=== PATIENT | male | born 1935 | race Caucasian/White ===

== ENCOUNTER 2016-11-15 11:33 | Emergency (ER) | payer OTHER ==
[2016-11-15 12:00] VITALS: BP 125/75; PULSE 86; TEMP 98.2; BMI 20.4
--- NOTE | 2016-11-15 12:33 | PDOC ---
History of Present Illness - General Chief Complaint: Nasal Bleeding Stated Complaint: NOSE BLEED Time Seen by Provider: 11/15/16 11:43 History Source: Patient Exam Limitations: No Limitations Past History - Past Medical History Allergies/Adverse Reactions: Allergies Allergy/AdvReac Type Severity Reaction Status Date / Time bacitracin Allergy Intermediate swelling Verified 11/15/16 11:54 of eye Home Medications: Ambulatory Orders Atorvastatin Ca [Lipitor] 20 mg PO HS 04/03/14 Tamsulosin HCl 0.4 mg PO BID 04/03/14 Teriparatide [Forteo] 2.4 ml SQ HS 02/11/16 Anemia: No Asthma: No Cancer: No Cardiac Disorders: No CVA: No COPD: No CHF: No Dementia: No Diabetes: No GI Disorders: No Disorders: No HTN: No Hypercholesterolemia: Yes Liver Disease: No Seizures: No Thyroid Disease: No - Surgical History Abdominal Surgery: No Appendectomy: No Cardiac Surgery: No Cholecystectomy: No Lung Surgery: No Neurologic Surgery: No Orthopedic Surgery: No - Psycho/Social/Smoking Cessation Hx Anxiety: No Suicidal Ideation: No Smoking History: Never smoked Have you smoked in the past 12 months: No Hx Alcohol Use: No Drug/Substance Use Hx: No Substance Use Type: None Hx Substance Use Treatment: No *Physical Exam - Vital Signs Last Vital Signs Temp Pulse Resp BP Pulse Ox 98.2 F 86 19 125/75 97 11/15/16 11:54 11/15/16 11:54 11/15/16 11:54 11/15/16 11:54 11/15/16 11:54 - Physical Exam General Appearance: Yes: Nourished, Appropriately Dressed, Apparent Distress, Mild Distress HEENT: positive: EOMI, LASHAE, TMs Normal, Pharynx Normal, Rhinorrhea (as large clot to the anterior aspect in her right nostril, patient states his site of frequent bleeds and previous history of cauterization active bleeding noted, Left pharynx nostril clear). negative: Normal ENT Inspection Neck: positive: Tender, Supple. negative: Lymphadenopathy (R), Lymphadenopathy (L) Respiratory/Chest: positive: Chest Tender, Lungs Clear, Normal Breath Sounds Cardiovascular: positive: Regular Rate Gastrointestinal/Abdominal: positive: Soft Extremity: positive: Normal Capillary Refill, Normal Range of Motion Integumentary: positive: Normal Color, Dry, Warm, Pale Neurologic: positive: rod filler II-XII NML intact, Fully Oriented, Alert, Normal Mood/ Affect, Normal Response, Motor Strength 11/06 Medical Decision Making - Medical Decision Making 11/15/16 12:39 For his arrival to ER. Had lengthy discussion about procedure for holding nose, not dislodging clots, not using saline irrigation until clots in scabs are gone. Encouraged to use lubricating and humidifier in room, and will follow-up with Dr. Vasquez/ENT office tomorrow *DC/Admit/Observation/Transfer Diagnosis at time of Disposition: Anterior epistaxis - Discharge Dispostion Disposition: HOME Condition at time of disposition: Stable Admit: No - Referrals Referrals: Beata Funk MD [Primary Care Provider] - Drew Vasquez MD [Staff Physician] - - Patient Instructions Printed Discharge Instructions: DI for Nosebleed Additional Instructions: Hold pressure to both nostrils leaning head forward, for 15 minutes using paper towel or Kleenex. If nosebleed does not stop repeat for an additional 15 minutes If nosebleed still does not. Seek medical evaluation Once nosebleed has resolved, may use Vaseline or bacitracin ointment just in the anterior aspect of nostrils to keep airways moist Drink lots of fluids to replace any blood loss Remember that blood can cause an upset stomach and or diarrhea if swallowed Consider humidifier in room at night to avoid drying of mucous membranes Never uses any instrument/Q-tips/fingers into nostrils to avoid dislodging scabbing and recurrence of bleeding Do not blow nose, and do not put any cotton balls or Kleenex into nose to help stop bleeding If nosebleeds occur frequently have evaluation by ear nose and throat doctor for possible further treatment and cauterization Return to emergency department for inability to stop nosebleed, lightheadedness , fevers, or any other worsened symptoms
== END 2016-11-15 12:44 | disposition home or self-care (01) ==
LOC: JER 11:33 → JERFT 11:33
DX: R04.0 Epistaxis (principal); E78.00 Pure hypercholesterolemia, unspecified
CPT/HCPCS: 99281-25

== ENCOUNTER 2018-10-03 14:25 | Observation (INO) | payer OTHER, BC ==
[2018-10-03] MEDS ORDERED: SODIUM CHLORIDE 1,000 ML IV STA (14:46)
[2018-10-03 15:08] VITALS: BMI 21.6
--- NOTE | 2018-10-03 15:13 | PDOC ---
Attending Attestation - HPI HPI: 10/03/18 15:24 The patient is a 83 year old male, with a significant past medical history of HLD, chronic back pain, PVD (RLE venous stasis ulcer), who presents to the emergency department with, dizziness. As per patient, he recently experienced an episode of room-spinning dizziness which lasted approximately 15 minutes and resolved on its own then he had a repeat episode today lasting an hour prompting him to visit his PCP Dr. Page. As per Dr. Page, while in the office patient was in Afib at a rate up to the 140s, his blood pressure was 160/100 and O2 saturation 98% prompting his arrival to the ED. He denies any recent fevers or chills.. He denies any recent nausea, vomit, diarrhea or constipation. He denies any recent chest pain or shortness of breath. He denies any recent dysuria, frequency, urgency or hematuria. Allergies: Bacitracin. Primary Care Physician: Dr. Page - Physicial Exam PE: 10/03/18 16:16 GENERAL: The patient is in no acute distress. HEAD: Normal with no signs of trauma. EYES: PERRLA, EOMI, sclera anicteric, conjunctiva clear. ENT: Ears normal, nares patent, oropharynx clear without exudates. Moist mucous membranes. NECK: Normal range of motion, supple without lymphadenopathy, JVD, or masses. LUNGS: Breath sounds equal, clear to auscultation bilaterally. No wheezes, and no crackles. HEART:Regular rate and rhythm, normal S1 and S2 without murmur, rub or gallop. ABDOMEN: Soft, nontender, normoactive bowel sounds. No guarding, no rebound. No masses palpable. EXTREMITIES: +RLE: Chronic venous ulcer with drainage. NEUROLOGICAL: Cranial nerves II through XII grossly intact. Normal speech. No focal neurological deficits. MUSCULOSKELETAL: Back non-tender to palpation, no CVA tenderness SKIN: Warm, Dry, normal turgor, no rashes or lesions noted. <Brenda Shultz - Last Filed: 10/03/18 16:16> - Resident Resident Name: Alana Granda - ED Attending Attestation I have performed the following: I have examined & evaluated the patient, The case was reviewed & discussed with the resident, I agree w/resident's findings & plan, Exceptions are as noted - Medical Decision Making 83 yo M h/o PVD, chronic RLE wound who presents to the ER with a complaint of vertigo symptoms began yesterday and resolved He noted vertigo today He went to see his PMD EKG 10/03/18 16:35 Laboratory Tests 10/03/18 10/03/18 15:13 15:13 WBC 7.7 Hgb 12.5 Hct 36.8 Plt Count 269 INR 1.05 10/03/18 17:01 Laboratory Tests 10/03/18 10/03/18 15:13 15:35 INR 1.05 Sodium 137 Potassium 4.2 Chloride 105 Carbon Dioxide 25 BUN 22 H Creatinine 1.0 Random Glucose 81 Creatine Kinase 401 H Troponin I < 0.02 EKG from the office reviewed Will place on observation to tele <Marizol Nielsen - Last Filed: 10/04/18 13:20> Attestations - Attestations 10/03/18 15:25 Documentation prepared by Brenda Shultz, acting as medical insurance verifier for Marizol Nielsen MD. <Brenda Shultz - Last Filed: 10/03/18 16:16>
--- NOTE | 2018-10-03 15:25 | PDOC ---
History of Present Illness - General Chief Complaint: Blood Pressure Problem Stated Complaint: Blood Pressure Problem Time Seen by Provider: 10/03/18 14:45 History Source: Patient Exam Limitations: No Limitations - History of Present Illness Initial Comments: 10/03/18 15:19 Patient is a 83 y/o male with a history of peripheral vascular disease and chronic venous stasis ulcer who presents for dizziness. Patient had an episodes of dizziness yesterday which he describes as the room spinning that lasted for 15 minutes. It got better but he felt the same type of dizziness today and it lasted for longer. He went to his PCP Dr. oMrales who did an EKG and found it to be "out of wack" so he was sent to the ED. Patient does not smoke and has a couple of glasses of wine with dinner throughout the week. Patient has no other complaints. Patient denies nausea, vomiting, shortness of breath, chest pain, or headache. Past History - Past Medical History Allergies/Adverse Reactions: Allergies Allergy/AdvReac Type Severity Reaction Status Date / Time bacitracin Allergy Intermediate swelling Verified 10/03/18 14:39 of eye Home Medications: Ambulatory Orders Atorvastatin Ca [Lipitor] 20 mg PO HS 04/03/14 Tamsulosin HCl 0.4 mg PO BID 04/03/14 Prednisolone 1% Ophthalmic [Pred Forte 1% -] 1 ml OS ASDIR 10/03/18 Anemia: No Asthma: No Cancer: No Cardiac Disorders: No CVA: No COPD: No CHF: No Dementia: No Diabetes: No GI Disorders: No Disorders: No HTN: No Hypercholesterolemia: Yes Liver Disease: No Seizures: No Thyroid Disease: No - Surgical History Abdominal Surgery: No Appendectomy: No Cardiac Surgery: No Cholecystectomy: No Lung Surgery: No Neurologic Surgery: No Orthopedic Surgery: No - Suicide/Smoking/Psychosocial Hx Smoking History: Never smoked Have you smoked in the past 12 months: No Hx Alcohol Use: No Drug/Substance Use Hx: No Substance Use Type: None Hx Substance Use Treatment: No Review of Systems - Review of Systems Constitutional: No: Chills, Fever HEENTM: No: Eye Pain Respiratory: No: Cough, Shortness of Breath Cardiac (ROS): No: Chest Pain ABD/GI: No: Abdominal Distended, Diarrhea, Nausea : No: Dysuria Musculoskeletal: No: Back Pain Neurological: Yes: Dizziness *Physical Exam - Vital Signs Last Vital Signs Temp Pulse Resp BP Pulse Ox 98.1 F 100 H 17 139/99 99 10/03/18 14:59 10/03/18 14:59 10/03/18 14:59 10/03/18 14:59 10/03/18 14:59 - Physical Exam Comments: 10/03/18 15:24 GENERAL: A&O x3, no acute distress EYES: EOMI HEARTL RRR, 3/5 systolic murmur at upper sternal border, rubs or gallops LUNGS: CTAL B/L ABDOMEN: soft, non distended, non tender EXTREMITIES: no pitting edema, r foot with chronic ulcer, covered by guaze SKIN: no rashes or ulcers ED Treatment Course - LABORATORY CBC & Chemistry Diagram: 10/03/18 15:13 10/03/18 15:35 Medical Decision Making - Medical Decision Making 10/03/18 15:25 EKG: no st elevations, p wave present, QTC 440 f/u labs 10/03/18 17:40 labs WNL, will admit to tele obs under hospitalist team *DC/Admit/Observation/Transfer Diagnosis at time of Disposition: Irregular heart rhythm - Discharge Dispostion Decision to Admit order: Yes - Referrals Referrals: Patel Page MD [Primary Care Provider] - - Patient Instructions - Post Discharge Activity
[2018-10-03 16:14] LABS: BASO % 0.6 % (0-2.0); EOS % 0.9 % (0-4.5); HEMATOCRIT 36.8 % (35.4-49); HEMOGLOBIN 12.5 GM/dL (11.7-16.9); LYMPH % 15.6 % (8-40); MCH 34.1 pg (25.7-33.7); MEAN CELL VOLUME 100.2 fl (80-96); MEAN PLT VOLUME 7.7 fl (7.5-11.1); MONO % 8.5 % (3.8-10.2); NEUT % 74.4 % (42.8-82.8); PLATELET COUNT 269 K/MM3 (134-434); RBC 3.68 M/mm3 (4.00-5.60); RDW 13.2 % (11.9-15.9); WHITE BLOOD COUNT 7.7 K/mm3 (4.0-10.0)
[2018-10-03 16:26] LABS: INR 1.05 (0.83-1.09); PROTHROMBIN TIME (PATIENT) 12.4 SEC (9.7-13.0)
[2018-10-03 16:30] LABS: ACTIVATED PTT 33.3 SECONDS (25.2-36.5)
[2018-10-03 16:43] LABS: ALBUMIN 3.4 g/dl (3.4-5.0); ALK PHOS 67 U/L (45-117); ANION GAP 7 MMOL/L (8-16); BILIRUBIN,TOTAL 0.4 mg/dL (0.2-1); BLOOD UREA NITROGEN 22 mg/dL (7-18); CALCIUM 8.5 mg/dL (8.5-10.1); CHLORIDE 105 mmol/L (98-107); CO2 25 mmol/L (21-32); GLUCOSE,RANDOM 81 mg/dL (74-106); POTASSIUM 4.2 mmol/L (3.5-5.1); SGOT/AST 27 U/L (15-37); SGPT/ALT 36 U/L (13-61); SODIUM 137 mmol/L (136-145)
[2018-10-03 17:05] LABS: MAGNESIUM 2.2 mg/dL (1.8-2.4)
--- NOTE | 2018-10-03 18:11 | HP ---
CHIEF COMPLAINT: dizziness PCP: Camilo HISTORY OF PRESENT ILLNESS: Patient is an 83 y/o M w/ PMHx PVD, chronic venous stasis ulcer, afib/RVR noted on EKG in 2016 not on AC, p/w 2 episodes of self-resolving dizziness since yesterday. Went to PCP's office and reportedly tachyarrhythmia Afib vs SVT was seen on EKG; Pt was then sent to ED. No other symptoms or complaints, totally asymptomatic at time of presentation, in particular has not had CP, SOB, palpitation, LOC, falls, or any recurrent dizziness. Labs and EKG in the ED were unremarkable, initial troponin negative. Dr. Villareal was contacted by ED attending and requested observation on telemetry. ER course was notable for: (1) EKG sinus rhythm w/ short IN, no ST changes (2) troponin negative x 1 (3) asymptomatic Recent Travel: PAST MEDICAL HISTORY: As per HPI PAST SURGICAL HISTORY: Multiple vascular procedures for chronic venous stasis ulcer Social History: Smoking: Alcohol: Drugs: Family History: Allergies bacitracin Allergy (Intermediate, Verified 10/03/18 14:39) swelling of eye PT STATES THAT IT WAS AN EYE DROP THAT HE TOOK YEARS AGO. PT STATES THAT HE TOLERATES BACITRACIN OINTMENT HOME MEDICATIONS: Home Medications Medication Instructions Recorded Atorvastatin Ca [Lipitor] 20 mg PO HS 04/03/14 Tamsulosin HCl 0.4 mg PO BID 04/03/14 Prednisolone 1% Ophthalmic [Pred 1 ml OS ASDIR 10/03/18 Forte 1% -] REVIEW OF SYSTEMS As per HPI PHYSICAL EXAMINATION Vital Signs - 24 hr 10/03/18 14:59 Temperature 98.1 F Pulse Rate 100 H Respiratory 17 Rate Blood Pressure 139/99 O2 Sat by Pulse 99 Oximetry (%) GENERAL: A&Ox3, NAD HEENT: NC/AT, PERRLA, EOMI, MMM NECK: Trachea midline, full range of motion, supple. LUNGS: CTA b/l HEART: RRR, holosystolic murmur most prominent at LUSB ABDOMEN: +bs, soft, NT, ND EXTREMITIES: 2+ pulses, warm, well-perfused, no edema. 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 SKIN: Warm, dry, normal turgor, no rashes or lesions noted Laboratory Results - last 24 hr 10/03/18 10/03/18 10/03/18 15:13 15:13 15:13 WBC 7.7 RBC 3.68 L Hgb 12.5 Hct 36.8 MCV 100.2 H MCH 34.1 H MCHC 34.0 RDW 13.2 Plt Count 269 MPV 7.7 Absolute Neuts (auto) 5.8 Neutrophils % 74.4 D Lymphocytes % 15.6 D Monocytes % 8.5 Eosinophils % 0.9 D Basophils % 0.6 Nucleated RBC % 0 PT with INR 12.40 INR 1.05 PTT (Actin FS) 33.3 Sodium Potassium Chloride Carbon Dioxide Anion Gap BUN Creatinine Creat Clearance w eGFR Random Glucose Calcium Magnesium Cancelled Total Bilirubin AST ALT Alkaline Phosphatase Creatine Kinase Creatine Kinase Index CK-MB (CK-2) Troponin I Total Protein Albumin TSH 10/03/18 15:35 WBC RBC Hgb Hct MCV MCH MCHC RDW Plt Count MPV Absolute Neuts (auto) Neutrophils % Lymphocytes % Monocytes % Eosinophils % Basophils % Nucleated RBC % PT with INR INR PTT (Actin FS) Sodium 137 Potassium 4.2 Chloride 105 Carbon Dioxide 25 Anion Gap 7 L BUN 22 H Creatinine 1.0 Creat Clearance w eGFR 71.72 Random Glucose 81 Calcium 8.5 Magnesium 2.2 Total Bilirubin 0.4 AST 27 ALT 36 Alkaline Phosphatase 67 Creatine Kinase 401 H Creatine Kinase Index 1.7 CK-MB (CK-2) 7.1 H Troponin I < 0.02 Total Protein 7.0 Albumin 3.4 TSH 1.00 ASSESSMENT/PLAN: 83 y/o M w/ PMHx PVD, chronic venous stasis ulcer, afib/RVR noted on EKG in 2016 not on AC, p/w two episodes self-resolving dizziness and unspecified tachyarrhythmia seen in PCP's office. #?paroxysmal afib -murmur on PE -telemetry monitoring -echocardiogram -trend troponins -BMP, CBC, Mg, Phos, TSH -cardiology consulted #FEN -no IVF -monitor lytes -cardiac diet #PPx -DVT: heparin subq -GI: not indicated #code -full #dispo -observe on telemetry Visit type - Emergency Visit Emergency Visit: Yes Care time: The patient presented to the Emergency Department on the above date and was hospitalized for further evaluation of their emergent condition. - New Patient This patient is new to me today: Yes Date on this admission: 10/03/18 - Critical Care Critical Care patient: No
--- NOTE | 2018-10-03 21:20 | PN ---
Teaching Attending Note Name of Resident: Daniel Slaughter ATTENDING PHYSICIAN STATEMENT I saw and evaluated the patient. I reviewed the resident's note and discussed the case with the resident. I agree with the resident's findings and plan as documented. SUBJECTIVE: Feels well now - no complaints. Dizziness resolved. OBJECTIVE: Afebrile, Hemodynamically Stable. Last Vital Signs Temp Pulse Resp BP Pulse Ox 98.1 F 100 H 17 139/99 97 10/03/18 14:59 10/03/18 14:59 10/03/18 14:59 10/03/18 14:59 10/03/18 19:04 HEENT: Atraumatic, Normocephalic Heart - S1, S2, SM Lungs - clear to auscultation Abdomen - Soft, non-tender. Bowel Sounds normal. Extremities - no edema. RLE wrapped with EDUARDO. Neurovascularly intact. Neuro - AAO x 3. LASHAE. EOMI - no nystagmus, Tone/Power normal all 4 extremities. Laboratory Results - last 24 hr 10/03/18 10/03/18 10/03/18 15:13 15:13 15:13 WBC 7.7 RBC 3.68 L Hgb 12.5 Hct 36.8 MCV 100.2 H MCH 34.1 H MCHC 34.0 RDW 13.2 Plt Count 269 MPV 7.7 Absolute Neuts (auto) 5.8 Neutrophils % 74.4 D Lymphocytes % 15.6 D Monocytes % 8.5 Eosinophils % 0.9 D Basophils % 0.6 Nucleated RBC % 0 PT with INR 12.40 INR 1.05 PTT (Actin FS) 33.3 Sodium Potassium Chloride Carbon Dioxide Anion Gap BUN Creatinine Creat Clearance w eGFR Random Glucose Calcium Magnesium Cancelled Total Bilirubin AST ALT Alkaline Phosphatase Creatine Kinase Creatine Kinase Index CK-MB (CK-2) Troponin I Total Protein Albumin TSH 10/03/18 15:35 WBC RBC Hgb Hct MCV MCH MCHC RDW Plt Count MPV Absolute Neuts (auto) Neutrophils % Lymphocytes % Monocytes % Eosinophils % Basophils % Nucleated RBC % PT with INR INR PTT (Actin FS) Sodium 137 Potassium 4.2 Chloride 105 Carbon Dioxide 25 Anion Gap 7 L BUN 22 H Creatinine 1.0 Creat Clearance w eGFR 71.72 Random Glucose 81 Calcium 8.5 Magnesium 2.2 Total Bilirubin 0.4 AST 27 ALT 36 Alkaline Phosphatase 67 Creatine Kinase 401 H Creatine Kinase Index 1.7 CK-MB (CK-2) 7.1 H Troponin I < 0.02 Total Protein 7.0 Albumin 3.4 TSH 1.00 Current Medications Generic Name Dose Route Start Last Admin Trade Name Thao PRN Reason Stop Dose Admin Atorvastatin Calcium 20 mg 10/03/18 22:00 Lipitor - PO HS [facility] Heparin Sodium (Porcine) 5,000 unit 10/03/18 22:00 Heparin - SQ TID [facility] Sodium Chloride 1,000 mls @ 100 mls/hr 10/03/18 14:46 10/03/18 15:57 Normal Saline - IV 10/04/18 00:45 100 mls/hr ASDIR STA Administration Tamsulosin HCl 0.4 mg 10/03/18 22:00 Flomax - PO BID [facility] Home Medications Medication Instructions Recorded Atorvastatin Ca [Lipitor] 20 mg PO HS 04/03/14 Tamsulosin HCl 0.4 mg PO BID 04/03/14 Prednisolone 1% Ophthalmic [Pred 1 ml OS ASDIR 10/03/18 Forte 1% -] ASSESSMENT AND PLAN: 83 year old male with PMHx of BPH, HLD, PVD with chronic venous stasis ulcer RLE , Hx of Paroxysmal Atrial Fibrillation not on AC, presents with 2 episodes of dizziness, both self limiting - reports that the "room was spinning" causing unsteady gait. No chest pain/palpitations/SOB/diaphoresis/Nausea/Vomiting. No falls or Head injury. No headache/visual disturbance/limb numbness or weakness. Went to PCP who reports tachyarrhythmia on office ECG. Currently asymptomatic. 1. Dizziness with associated unsteady gait, now resolved. Possible Arrhythmia versus BPPV r/o episodes of Afib with RVR Teleobservation Troponin neg, will trend ECG - NSR Echo pending Cardiology consulted Orthostatics requested. TSH level PT eval 2. BPH - continue Tamsulosin 3. HLD - Continue Lipitor. DVT Px - Heparin SQ
[2018-10-03] MEDS ORDERED: ATORVASTATIN CA 20 MG TABLET (FP) PO SCH (22:00)
[2018-10-03] MEDS ORDERED: IBUPROFEN 600 MG TABLET (FP) PO ONE ×2 (22:00→23:59)
[2018-10-04] MEDS: HEPARIN NA (PORCINE) 5,000 UNITS/ML 1ML VIAL SQ SCH ×2 (00:15→07:00)
[2018-10-04] MEDS: TAMSULOSIN HCL 0.4 MG CAP PO SCH ×2 (00:15→12:05)
[2018-10-04 06:26] LABS: BASO % 0.9 % (0-2.0); EOS % 3.3 % (0-4.5); HEMATOCRIT 34.2 % (35.4-49); HEMOGLOBIN 11.4 GM/dL (11.7-16.9); LYMPH % 27.8 % (8-40); MCH 32.9 pg (25.7-33.7); MCHC 33.3 g/dl (32.0-35.9); MEAN CELL VOLUME 98.7 fl (80-96); MEAN PLT VOLUME 7.7 fl (7.5-11.1); MONO % 10.2 % (3.8-10.2); NEUT % 57.8 % (42.8-82.8); PLATELET COUNT 246 K/MM3 (134-434); RBC 3.47 M/mm3 (4.00-5.60); RDW 13.1 % (11.9-15.9)
[2018-10-04] MEDS ORDERED: HEPARIN NA (PORCINE) 5,000 UNITS/ML 1ML VIAL ONE (06:30)
[2018-10-04 07:09] LABS: ANION GAP 6 MMOL/L (8-16); BLOOD UREA NITROGEN 27 mg/dL (7-18); CALCIUM 8.2 mg/dL (8.5-10.1); CHLORIDE 110 mmol/L (98-107); CO2 23 mmol/L (21-32); CREATININE 1.2 mg/dL (0.55-1.3); GLUCOSE,RANDOM 89 mg/dL (74-106); MAGNESIUM 2.1 mg/dL (1.8-2.4); PHOSPHOROUS 4.1 mg/dL (2.5-4.9); POTASSIUM 4.4 mmol/L (3.5-5.1); SODIUM 139 mmol/L (136-145)
--- NOTE | 2018-10-04 09:09 | CON.CARD ---
Consult Consult Specialty:: Cardiology Referred by:: Medicine Reason for Consultation:: dizziness - History of Present Illness Chief Complaint: dizziness History of Present Illness: 83M h/o PVD, chronic venous stasis ulcer p/w two episodes of dizziness day prior to admission. Patient describes room spinning sensation, two episodes lasting a few min each that resolved, felt unsteady like he was going to fall after. Went to PCP, tachycardia was noted on EKG and sent to ER. He was asymptomatic at the time, no chest pain, palps, dizziness, currently feels well. - Past Medical History Cardio/Vascular: Yes: Hyperlipdemia Gastrointestinal: Yes: Constipation Renal/: Yes: BPH Musculoskeletal: Yes: Osteoarthritis Endocrine: No: Olivier's Disease, Tobin's Disease, Diabetes Insipidus, Diabetes Mellitus, Hyperparathyroidism, Hyperthyroidism, Hypothyroidism, Osteopenia, SIADH, Other - Alcohol/Substance Use Hx Alcohol Use: No - Smoking History Smoking history: Never smoked Have you smoked in the past 12 months: No Home Medications - Allergies Allergies/Adverse Reactions: Allergies Allergy/AdvReac Type Severity Reaction Status Date / Time bacitracin Allergy Intermediate swelling Verified 10/03/18 14:39 of eye - Home Medications Home Medications: Ambulatory Orders Atorvastatin Ca [Lipitor] 20 mg PO HS 04/03/14 Tamsulosin HCl 0.4 mg PO BID 04/03/14 Family Disease History - Family Disease History Family History: Unremarkable Review of Systems - Review of Systems Constitutional: reports: No Symptoms Eyes: reports: No Symptoms HENT: reports: No Symptoms Neck: reports: No Symptoms Cardiovascular: reports: No Symptoms Respiratory: reports: No Symptoms Gastrointestinal: reports: No Symptoms Genitourinary: reports: No Symptoms Musculoskeletal: reports: No Symptoms Integumentary: reports: No Symptoms Neurological: reports: No Symptoms Endocrine: reports: No Symptoms Hematology/Lymphatic: reports: No Symptoms Psychiatric: reports: No Symptoms Vital Signs: Vital Signs Temperature 98.5 F 10/04/18 06:25 Pulse Rate 91 H 10/04/18 06:25 Respiratory Rate 17 10/03/18 14:59 Blood Pressure 151/97 10/04/18 06:25 O2 Sat by Pulse Oximetry (%) 98 10/04/18 06:25 Constitutional: Yes: No Distress, Calm Eyes: Yes: Conjunctiva Clear, EOM Intact HENT: Yes: Atraumatic, Normocephalic Neck: Yes: Supple, Trachea Midline Respiratory: Yes: Regular, CTA Bilaterally Gastrointestinal: Yes: Normal Bowel Sounds, Soft Cardiovascular: Yes: Regular Rate and Rhythm, Tachycardia JVD: No Carotid Bruit: No PMI: Non-Displaced Heart Sounds: Yes: S1, S2 Musculoskeletal: No: Back Pain Extremities: No: Cold Edema: No Peripheral Pulses WNL: Yes Integumentary: No: Jaundice Neurological: Yes: Alert, Oriented Psychiatric: No: Agitated - Other Data Labs, Other Data: CBC, BMP 10/04/18 05:30 10/04/18 05:30 INR, PTT INR 1.05 (0.83-1.09) 10/03/18 15:13 Troponin, BNP 10/03/18 10/03/18 10/04/18 15:35 21:50 05:30 Troponin I < 0.02 < 0.02 < 0.02 Troponin, BNP 10/03/18 10/03/18 10/04/18 15:35 21:50 05:30 Troponin I < 0.02 < 0.02 < 0.02 Assessment/Plan EKG: sinus tachycardia tele: sinus tachy, PACs Dizziness, unsteady gait - history consistent with vertigo - PT eval - trop neg x 3, TSH nl - orthostatics pending - monitoring on tele - echo pending Abnormal EKG, tachycardia - EKGs and reviewed, sinus tachycardia with PACs - reviewed EKGs from 02/2016 with EP - sinus tachycardia with PACs - no indication for anticoagulation - if echo benign findings, no further inpatient cardiac workup - on tele HLD - cont lipitor
--- NOTE | 2018-10-04 11:23 | ECHO ---
Name: BIA COLES Exam:Adult Echocardiogram Study Date: 10/04/2018 08:48 AM Age: 83 yrs Reason For Study: EF Height: 71 in Weight: 155 lb BSA: 1.9 m2 MMode/2D Measurements & Calculations IVSd: 1.2 cm Ao root diam: 3.5 cm LVIDd: 4.0 cm LA dimension: 3.5 cm LVIDs: 2.9 cm LVPWd: 1.0 cm EDV(Teich): 68.3 ml LVOT diam: 2.0 cm ESV(Teich): 31.2 ml LAV (MOD-bp): 92.0 ml Doppler Measurements & Calculations MV E max john: 150.0 cm/sec Ao V2 max: 284.0 cm/sec MV A max john: 183.0 cm/sec Ao max P.3 mmHg MV E/A: 0.82 Ao V2 mean: 225.6 cm/sec MV dec time: 0.07 sec Ao mean P.0 mmHg Ao V2 VTI: 64.7 cm CARINA(I,D): 0.84 cm2 AI P1/2t: 216.1 msec CARINA(V,D): 0.97 cm2 AI max john: 400.1 cm/sec LV V1 max P.9 mmHg AI max P.0 mmHg LV V1 mean P.5 mmHg AI dec slope: 542.3 cm/sec2 LV V1 max: 84.7 cm/sec LV V1 mean: 57.3 cm/sec LV V1 VTI: 16.8 cm MR max john: 491.9 cm/sec SV(LVOT): 54.6 ml MR max P.0 mmHg TR max john: 247.0 cm/sec PA V2 max: 126.2 cm/sec TR max P.5 mmHg PA max P.4 mmHg Med Peak E' John: 11.0 cm/sec Med E/e': 13.7 Lat Peak E' John: 9.5 cm/sec Lat E/e': 15.8 Procedure A two-dimensional transthoracic echocardiogram with color flow and Doppler was performed. Left Ventricle Left ventricular systolic function is normal. Ejection Fraction = 55%. E/A reversal consistent with b ut not diagnostic of poor LV compliance. Right Ventricle The right ventricle is normal size. The right ventricular systolic function is normal. Atria The left atrial size is normal. Right atrial size is normal. Mitral Valve There is mild mitral valve thickening. There is mild mitral annular calcification. There is mild mitr al regurgitation. Tricuspid Valve The tricuspid valve is normal. There is mild tricuspid regurgitation. Right ventricular systolic pres sure is normal. Aortic Valve There is moderate to severe aortic sclerosis.;. Moderate to severe valvular aortic stenosis. Aortic m luis manuel pressure gradient= 22mmHg. The calculated aortic valve area using the continuity equation is 0.96 cm2 . Mild aortic regurgitation. Pulmonic Valve The pulmonic valve is not well visualized. Trace pulmonic valvular regurgitation. Great Vessels The aortic root is normal size. Pericardium/Pleura There is no pericardial effusion. Interpretation Summary Left ventricular systolic function is normal. E/A reversal consistent with but not diagnostic of poor LV compliance The right ventricular systolic function is normal. There is mild mitral annular calcification. There is mild mitral valve thickening. There is mild mitral regurgitation. There is mild tricuspid regurgitation. There is moderate to severe aortic sclerosis.; Moderate to severe valvular aortic stenosis. Aortic mean pressure gradient= 22mmHg The calculated aortic valve area using the continuity equation is 0.96 cm2. Mild aortic regurgitation. Trace pulmonic valvular regurgitation. There is no pericardial effusion. MD Hardik Hoskins 10/04/2018 11:22 AM
[2018-10-04] MEDS ORDERED: TAMSULOSIN HCL 0.4 MG CAP ONE (11:57)
[2018-10-04] MEDS ORDERED: IBUPROFEN 600 MG TABLET (FP) PO ONE (12:15)
[2018-10-04] MEDS ORDERED: metoPROLOL SUCCINATE 25 MG TAB.SR.24H (FP) PO SCH (13:00)
[2018-10-04] MEDS ORDERED: APIXABAN 5 MG TABLET PO SCH (13:00)
--- NOTE | 2018-10-04 13:02 | PN ---
Teaching Attending Note Name of Resident: Daniel Slaughter ATTENDING PHYSICIAN STATEMENT I saw and evaluated the patient. I reviewed the resident's note and discussed the case with the resident. I agree with the resident's findings and plan as documented. SUBJECTIVE:asymptomatic. denies CP, SOB, fevdr, chills, N/V/C/D, no repeat episodes of dizzyness OBJECTIVE: Last Vital Signs Temp Pulse Resp BP Pulse Ox 98.5 F 91 H 17 151/97 98 10/04/18 06:25 10/04/18 06:25 10/03/18 14:59 10/04/18 06:25 10/04/18 06:25 General NAD CV S1 S2 RRR no murmur/rub/gallop Lungs CTA B/L no wheezing/rales/rhonchi Abdomen soft NT/ND ASSESSMENT AND PLAN: 83yo M with PMH BPH, dyslipidemia, Afib not on anticoagulation sent in for 2 episodes of dizzyness after going to his PMD office and finding to be tachycardic on EKG 1. Dizzyness- EKG reviewed by cardio and appears he was in aflutter at 150bpm and currently in NSR. will start on metoprolol 25mg and eliquis. will need to f/ u with cardio as outpatient 2. - newly seen here on echo. will need to repeat echo in 3-6mo as outpatient. results reviewed with patient and stressed importance of following up 3. can d/c home with cardiac follow up
--- NOTE | 2018-10-04 13:21 | DS ---
Physical Exam: SUBJECTIVE: Patient seen and examined at bedside in the ED. No acute complaints , feeling well. OBJECTIVE: Vital Signs Period Temp Pulse Resp BP Sys/Miller Pulse Ox Last 24 Hr 98.1 F-98.5 F 91-100 17 139-151/97-99 97-99 PHYSICAL EXAM GENERAL: A&Ox3, NAD HEENT: NC/AT, PERRLA, EOMI, MMM NECK: Trachea midline, full range of motion, supple. LUNGS: CTA b/l HEART: RRR, holosystolic murmur most prominent at LUSB ABDOMEN: +bs, soft, NT, ND EXTREMITIES: 2+ pulses, warm, well-perfused, no edema. NEUROLOGICAL: director biologics, motor, sensory systems w/o focal deficit PSYCH: Normal mood, normal affect. SKIN: Warm, dry, normal turgor, no rashes or lesions noted LABS Laboratory Results - last 24 hr 10/03/18 10/03/18 10/03/18 15:13 15:13 15:13 WBC 7.7 RBC 3.68 L Hgb 12.5 Hct 36.8 MCV 100.2 H MCH 34.1 H MCHC 34.0 RDW 13.2 Plt Count 269 MPV 7.7 Absolute Neuts (auto) 5.8 Neutrophils % 74.4 D Lymphocytes % 15.6 D Monocytes % 8.5 Eosinophils % 0.9 D Basophils % 0.6 Nucleated RBC % 0 PT with INR 12.40 INR 1.05 PTT (Actin FS) 33.3 Sodium Potassium Chloride Carbon Dioxide Anion Gap BUN Creatinine Creat Clearance w eGFR Random Glucose Calcium Phosphorus Magnesium Cancelled Total Bilirubin AST ALT Alkaline Phosphatase Creatine Kinase Creatine Kinase Index CK-MB (CK-2) Troponin I Total Protein Albumin TSH 10/03/18 10/03/18 10/04/18 15:35 21:50 05:30 WBC 6.0 RBC 3.47 L Hgb 11.4 L Hct 34.2 L MCV 98.7 H MCH 32.9 MCHC 33.3 RDW 13.1 Plt Count 246 MPV 7.7 Absolute Neuts (auto) 3.5 Neutrophils % 57.8 D Lymphocytes % 27.8 D Monocytes % 10.2 Eosinophils % 3.3 D Basophils % 0.9 Nucleated RBC % 0 PT with INR INR PTT (Actin FS) Sodium 137 Potassium 4.2 Chloride 105 Carbon Dioxide 25 Anion Gap 7 L BUN 22 H Creatinine 1.0 Creat Clearance w eGFR 71.72 Random Glucose 81 Calcium 8.5 Phosphorus Magnesium 2.2 Total Bilirubin 0.4 AST 27 ALT 36 Alkaline Phosphatase 67 Creatine Kinase 401 H Creatine Kinase Index 1.7 CK-MB (CK-2) 7.1 H Troponin I < 0.02 < 0.02 Total Protein 7.0 Albumin 3.4 TSH 1.00 10/04/18 10/04/18 05:30 05:30 WBC RBC Hgb Hct MCV MCH MCHC RDW Plt Count MPV Absolute Neuts (auto) Neutrophils % Lymphocytes % Monocytes % Eosinophils % Basophils % Nucleated RBC % PT with INR INR PTT (Actin FS) Sodium 139 Potassium 4.4 Chloride 110 H Carbon Dioxide 23 Anion Gap 6 L BUN 27 H Creatinine 1.2 Creat Clearance w eGFR 58.11 Random Glucose 89 Calcium 8.2 L Phosphorus 4.1 Magnesium 2.1 Total Bilirubin AST ALT Alkaline Phosphatase Creatine Kinase Creatine Kinase Index CK-MB (CK-2) Troponin I < 0.02 Total Protein Albumin TSH 1.36 D HOSPITAL COURSE: Date of Admission:10/03/18 Patient is an 83 y/o M w/ PMHx PVD, chronic venous stasis ulcer, tachyarrhythmias noted on EKG in 2016 not on AC, p/w two episodes self- resolving dizziness and unspecified tachyarrhythmia seen in PCP's office. Serial troponins were negative. EKG in the ED was unremarkable. Echocardiogram was significant for moderate to severe aortic stenosis and sclerosis. Cardiology was consulted and reviewed all prior available EKGs and determined the patient had experienced atrial flutter. He was initiated on Eliquis and Toprol and referred for followup evaluation with cardiology. Date of Discharge: 10/04/18 Minutes to complete discharge: 40 Discharge Summary Reason For Visit: IRREGULAR HEART RHYTHM Current Active Problems Irregular heart rhythm (Acute) Condition: Stable - Instructions Diet, Activity, Other Instructions: You were hospitalized due to an abnormal EKG and symptoms of dizziness. Cardiology was consulted, evaluated you, and reviewed your EKG history, and found that you have had a sporadic abnormal rhythm which requires medical therapy to prevent serious complications such as stroke. You also had an echocardiogram performed which revealed abnormalities in your aortic valve requiring further evaluation and management. Two new prescriptions have been sent to your pharmacy: Eliquis, a blood thinner, to be taken twice daily; and Toprol, a medication to normalize your heart rate, to be taken once daily. You received your initial doses of these medications in the hospital and will need to continue them upon your discharge. You will also need careful outpatient evaluation by cardiology. A referral has been made on your behalf. Please keep this appointment as soon as possible within a week of discharge. Please also keep an appointment with your primary medical doctor within a week of your discharge. If you experience any new or worsening chest pain, palpitation, shortness of breath, lightheadedness or loss of consciousness, new weakness or change in sensation, or any other new or concerning symptoms, please return to the Emergency Department. Referrals: Patel Page MD [Primary Care Provider] - Elissa Christy MD [Staff Physician] - Disposition: HOME - Home Medications Comprehensive Discharge Medication List: Ambulatory Orders Atorvastatin Ca [Lipitor] 20 mg PO HS 04/03/14 Tamsulosin HCl 0.4 mg PO BID 04/03/14 Apixaban [Eliquis] 5 mg PO BID #60 tablet 10/04/18 Metoprolol Succinate [Toprol XL -] 25 mg PO DAILY #30 tab.sr.24h 10/04/18 This patient is new to me today: No Emergency Visit: Yes ED Registration Date: 10/03/18 Care time: The patient presented to the Emergency Department on the above date and was hospitalized for further evaluation of their emergent condition. Critical Care patient: No - Discharge Referral Referred to [facility] Yes Physician Referral: Patel Wright MD ([facility])
[2018-10-04 14:04] VITALS: BP 135/89; PULSE 115; TEMP 98
--- NOTE | 2018-10-04 14:43 | EKG ---
Test Reason : Blood Pressure : / mmHG Vent. Rate : 091 BPM Atrial Rate : 091 BPM P-R Int : 102 ms QRS Dur : 080 ms QT Int : 358 ms P-R-T Axes : 000 025 035 degrees QTc Int : 440 ms SINUS RHYTHM WITH SHORT TN OTHERWISE NORMAL ECG WHEN COMPARED WITH ECG OF 10-FEB-2016 21:53, TN INTERVAL HAS DECREASED Confirmed by Abad Kendrick ([id number]) on 10/04/2018 2:42:54 PM Referred By: Confirmed By:Abad Kendrick
== END 2018-10-04 14:04 | disposition home or self-care (01) ==
LOC: JER 14:25 → JERBED 17:41
PROVIDERS: ATTEND Internal Medicine
PROC: 3E0337Z Introduction of Electrolytic and Water Balance Substance into Peripheral Vein, Percutaneous Approach (ICD-10-PCS; principal; 2018-10-03)
PROC: 3E013GC Introduction of Other Therapeutic Substance into Subcutaneous Tissue, Percutaneous Approach (ICD-10-PCS; 2018-10-03)
DX: I49.9 Cardiac arrhythmia, unspecified (principal); R00.0 Tachycardia, unspecified; I49.1 Atrial premature depolarization; R42 Dizziness and giddiness; R26.81 Unsteadiness on feet; E78.5 Hyperlipidemia, unspecified; M54.5 Low back pain; G89.29 Other chronic pain; I73.9 Peripheral vascular disease, unspecified; I87.2 Venous insufficiency (chronic) (peripheral); N40.0 Benign prostatic hyperplasia without lower urinary tract symptoms; Z88.8 Allergy status to other drugs, medicaments and biological substances
CPT/HCPCS: 36415; 80048; 80053; 82550; 82553; 83735; 84100; 84443; 84484; 85025; 85610; 85730; 93005; 93010; 93306-TC; 96360; 96372; 97116-GP; 97161-GP; 99285-25; G0378; J1644; J7030

== ENCOUNTER 2019-06-25 20:08 | Inpatient (IN) | payer OTHER, BC ==
--- NOTE | 2019-06-25 21:40 | PDOC ---
Documentation entered by Susana Fernandez SCRIBE, acting as scribe for Dacia Thomas MD. Dacia Thomas MD: This documentation has been prepared by the Jim lopez Aiswarya, SCRIBE, under my direction and personally reviewed by me in its entirety. I confirm that the documentation accurately reflects all work, treatment, procedures, and medical decision making performed by me. History of Present Illness - General Chief Complaint: Edema Stated Complaint: BLE SWELLING Time Seen by Provider: 06/25/19 20:18 History Source: Patient Exam Limitations: No Limitations - History of Present Illness Initial Comments: 06/25/19 21:32 The patient is a 83 year old male, with a significant PMH of irregular rhythm, HLD, and venous ulcer, who presents to the emergency department with bilateral swelling of the legs that began 1 week ago. Patient states he has a venous ulcer on his left leg and today patients nurse came in for a dressing change where she noted progressive swelling to both legs. Patient states he is scheduled for an ECHO with his design architect, Dr. Christy, tomorrow. The patient denies chest pain, shortness of breath, headache and dizziness. Denies fever, chills, nausea, vomit, diarrhea and constipation.Denies dysuria, frequency, urgency and hematuria. Allergies: bacitracin Past surgical history:None reported Social history: None reported PCP:Dr. Ferguson Past History - Past Medical History Allergies/Adverse Reactions: Allergies Allergy/AdvReac Type Severity Reaction Status Date / Time bacitracin Allergy Intermediate swelling Verified 06/25/19 21:52 of eye Home Medications: Ambulatory Orders Atorvastatin Ca [Lipitor] 20 mg PO HS 04/03/14 Tamsulosin HCl 0.4 mg PO BID 04/03/14 Apixaban [Eliquis] 5 mg PO BID #60 tablet 10/04/18 Metoprolol Succinate [Toprol XL -] 25 mg PO DAILY #30 tab.sr.24h 10/04/18 Denosumab [Prolia -] 60 mg SCJ ASDIR 12/28/18 Gabapentin [Neurontin] 1 cap PO TID 12/28/18 Clobetasol Propionate/Emoll [Clobetasol Emollient 0.05% Crm] 1 applic TP BID Anemia: No Asthma: No Cancer: No Cardiac Disorders: Yes (Irregular Rhythm) CVA: No COPD: No CHF: No Dementia: No Diabetes: No GI Disorders: No Disorders: No HTN: No Hypercholesterolemia: Yes Liver Disease: No Seizures: No Thyroid Disease: No - Surgical History Abdominal Surgery: No Appendectomy: No Cardiac Surgery: No Cholecystectomy: No Lung Surgery: No Neurologic Surgery: No Orthopedic Surgery: No - Psycho Social/Smoking Cessation Hx Smoking History: Never smoked Have you smoked in the past 12 months: No Hx Alcohol Use: No Drug/Substance Use Hx: No Substance Use Type: None Hx Substance Use Treatment: No Review of Systems - Review of Systems Able to Perform ROS?: Yes Comments:: 06/25/19 21:21 GENERAL/CONSTITUTIONAL: No fever or chills. No weakness. HEAD, EYES, EARS, NOSE AND THROAT: No change in vision. No ear pain or discharge. No sore throat. CARDIOVASCULAR: No chest pain or shortness of breath. RESPIRATORY: No cough, wheezing, or hemoptysis. MUSCULOSKELETAL: +bilateral swelling to both legs. No neck or back pain. SKIN: No rash NEUROLOGIC: No headache, vertigo, loss of consciousness, or change in strength/ sensation. ENDOCRINE: No increased thirst. No abnormal weight change. HEMATOLOGIC/LYMPHATIC: No anemia, easy bleeding, or history of blood clots. ALLERGIC/IMMUNOLOGIC: No hives or skin allergy *Physical Exam - Vital Signs Last Vital Signs Temp Pulse Resp BP Pulse Ox 97.9 F 67 20 135/84 99 06/25/19 20:09 06/25/19 20:09 06/25/19 20:09 06/25/19 20:09 06/25/19 20:09 - Physical Exam 06/25/19 21:21 GENERAL: Awake, alert, and fully oriented, in no acute distress HEAD: No signs of trauma LUNGS: Breath sounds equal, clear to auscultation bilaterally. No wheezes, and no crackles HEART: Regular rate and rhythm, normal S1 and S2, no murmurs, rubs or gallops ABDOMEN: Soft, nontender, normoactive bowel sounds. No guarding, no rebound. No masses EXTREMITIES: +Right compression stocking in place. Patient reports venous ulcer that was bandaged. Refused removal of bandage on examination. Normal range of motion, no edema. No clubbing or cyanosis. No cords, erythema, or tenderness NEUROLOGICAL: Normal speech SKIN: +right and left leg 2+ pitting edema. No tenderness, redness or erythem ED Treatment Course - LABORATORY CBC & Chemistry Diagram: 06/25/19 21:33 06/25/19 21:33 - RADIOLOGY Radiology Studies Ordered: Category Date Time Status CHEST PA & LAT [RAD] Stat Radiology 06/25/19 21:10 Taken Medical Decision Making - Medical Decision Making 06/25/19 21:37 pt presents to the ED complaining of a 5 day history of worsening of his chronic bilateral lower extremity edema and a three week history of worsening shortness of breath. Differential includes CHF, less likely renal failure. Will check labs to evaluate renal and kidney function, check BNP and reassess. Discharge - Discharge Information Problems reviewed: Yes Clinical Impression/Diagnosis: Congestive heart failure (CHF) Qualifiers: Heart failure type: unspecified Heart failure chronicity: acute Qualified Code( s): I50.9 - Heart failure, unspecified Atrial fibrillation Qualifiers: Atrial fibrillation type: unspecified Qualified Code(s): I48.91 - Unspecified atrial fibrillation Condition: Good - Admission Yes - Follow up/Referral - Patient Discharge Instructions - Post Discharge Activity
[2019-06-25 21:45] LABS: BASO % 2.8 % (0-2.0); EOS % 0.7 % (0-4.5); HEMATOCRIT 38.9 % (35.4-49); HEMOGLOBIN 12.4 GM/dl (11.7-16.9); MCH 31.3 pg (25.7-33.7); MCHC 31.9 g/dl (32.0-35.9); MEAN PLT VOLUME 8.3 fl (7.5-11.1); MONO % 8.8 % (3.8-10.2); NEUT % 70.7 % (42.8-82.8); PLATELET COUNT 285 K/MM3 (134-434); RBC 3.97 M/mm3 (4.00-5.60); RDW 16.1 % (11.9-15.9); WHITE BLOOD COUNT 7.4 K/mm3 (4.0-10.8)
[2019-06-25] MEDS ORDERED: dilTIAZem HCL 50 MG/10 ML - 10 ML VIAL IVPUSH ONE (21:50)
[2019-06-25] MEDS ORDERED: dilTIAZem HCL 50 MG/10 ML - 10 ML VIAL ONE (21:52)
[2019-06-25 22:06] LABS: ALBUMIN 3.6 g/dl (3.4-5.0); BILIRUBIN,TOTAL 1.5 mg/dl (0.2-1); CALCIUM 8.7 mg/dl (8.5-10); CREATININE 1.2 mg/dl (0.55-1.3); POTASSIUM 4.6 mmol/L (3.5-5.1); TOT PROT 6.8 g/dl (6.4-8.2)
[2019-06-25] MEDS ORDERED: FUROSEMIDE 40 MG/4 ML INJECTABLE VIAL IVPUSH ONE (23:35)
[2019-06-26] MEDS ORDERED: TAMSULOSIN HCL 0.4 MG CAP PO ONE (00:18)
[2019-06-26] MEDS ORDERED: FUROSEMIDE 40 MG/4 ML INJECTABLE VIAL ONE (00:26)
[2019-06-26] MEDS ORDERED: metoPROLOL SUCCINATE 25 MG TAB.SR.24H (FP) PO ONE ×2 (03:05→14:46)
[2019-06-26] MEDS ORDERED: dilTIAZem HCL 50 MG/10 ML - 10 ML VIAL IVPUSH ONE (04:59)
[2019-06-26] MEDS ORDERED: METOPROLOL TARTRATE 5 MG/5 ML VIAL IVPUSH ONE (05:01)
[2019-06-26] MEDS ORDERED: metoPROLOL SUCCINATE 25 MG TAB.SR.24H (FP) PO SCH ×2 (10:00→22:00)
[2019-06-26] MEDS ORDERED: FUROSEMIDE 40 MG/4 ML INJECTABLE VIAL IVPUSH SCH (10:00)
[2019-06-26] MEDS: APIXABAN 5 MG TABLET PO SCH ×2 (10:15→21:50)
[2019-06-26] MEDS: TAMSULOSIN HCL 0.4 MG CAP PO SCH ×2 (10:15→21:50)
[2019-06-26 13:01] LABS: BASO % 0.3 % (0-2.0); EOS % 1.2 % (0-4.5); HEMATOCRIT 38.8 % (35.4-49); HEMOGLOBIN 12.9 GM/dl (11.7-16.9); LYMPH % 19.5 % (8-40); MCHC 33.2 g/dl (32.0-35.9); MEAN CELL VOLUME 96.6 fl (80-96); MEAN PLT VOLUME 8.3 fl (7.5-11.1); MONO % 8.1 % (3.8-10.2); NEUT % 70.9 % (42.8-82.8); PLATELET COUNT 266 K/MM3 (134-434); RBC 4.02 M/mm3 (4.00-5.60); RDW 16.2 % (11.9-15.9); WHITE BLOOD COUNT 6.3 K/mm3 (4.0-10.8)
[2019-06-26 13:05] LABS: ALBUMIN 3.7 g/dl (3.4-5.0); BILIRUBIN,TOTAL 1.8 mg/dl (0.2-1); CALCIUM 8.7 mg/dl (8.5-10); CREATININE 1.2 mg/dl (0.55-1.3); MAGNESIUM 1.9 mg/dL (1.8-2.4); POTASSIUM 4.1 mmol/L (3.5-5.1); TOT PROT 6.9 g/dl (6.4-8.2)
--- NOTE | 2019-06-26 13:37 | EKG ---
Test Reason : Blood Pressure : / mmHG Vent. Rate : 131 BPM Atrial Rate : 144 BPM P-R Int : 000 ms QRS Dur : 088 ms QT Int : 322 ms P-R-T Axes : 000 009 067 degrees QTc Int : 475 ms ATRIAL FIBRILLATION WITH RAPID VENTRICULAR RESPONSE NONSPECIFIC T WAVE ABNORMALITY ABNORMAL ECG WHEN COMPARED WITH ECG OF 03-OCT-2018 15:02, ATRIAL FIBRILLATION HAS REPLACED SINUS RHYTHM VENT. RATE HAS INCREASED Confirmed by SONIYA DELAROSA, ROBINSON ([id number]) on 06/26/2019 1:37:54 PM Referred By: FANTASMA Confirmed By:ROBINSON BYRNES MD
--- NOTE | 2019-06-26 14:52 | CON.CARD ---
Cardiology Consult (text) - Consultation Consultation Note: Consult Specialty:: Cardiology Referred by:: Medicine Reason for Consultation:: shortness of breath, edema - History of Present Illness Chief Complaint: shortness of breath, edema History of Present Illness: 83M h/o PVD, chronic venous stasis ulcer, afib/flutter on eliquis p/w shortness of breath. Sees me for cardio, came to clinic about a month ago complaining of dyspnea on exertion, no palps, chest pain, edema. At that time echo and nuclear stress test were recommended, patient did not complete. He was out of town and called a week ago that he was developing lower extremity swelling, advised to go to the ER. He did not go to ER but scheduled stress test and echo. Now comes to the ER for two weeks of lower ext swelling, orthopnea, PND, and worsening dyspnea on exertion. Improving with IV lasix. - Past Medical History Cardio/Vascular: Yes: Hyperlipdemia, afib/flutter Gastrointestinal: Yes: Constipation Renal/: Yes: BPH Musculoskeletal: Yes: Osteoarthritis Endocrine: No: Mantoloking's Disease, [place]'s Disease, Diabetes Insipidus, Diabetes Mellitus, Hyperparathyroidism, Hyperthyroidism, Hypothyroidism, Osteopenia, SIADH, Other - Alcohol/Substance Use Hx Alcohol Use: No - Smoking History Smoking history: Never smoked Have you smoked in the past 12 months: No Home Medications - Allergies Allergies/Adverse Reactions: Allergies Allergy/AdvReac Type Severity Reaction Status Date / Time bacitracin Allergy Intermediate swelling Verified 06/25/19 21:52 of eye - Home Medications Home Medications: Ambulatory Orders Atorvastatin Ca [Lipitor] 20 mg PO HS 04/03/14 Tamsulosin HCl 0.4 mg PO BID 04/03/14 Family Disease History - Family Disease History Family History: Unremarkable Review of Systems - Review of Systems Constitutional: reports: No Symptoms Eyes: reports: No Symptoms HENT: reports: No Symptoms Neck: reports: No Symptoms Cardiovascular: reports: No Symptoms Respiratory: reports: No Symptoms Gastrointestinal: reports: No Symptoms Genitourinary: reports: No Symptoms Musculoskeletal: reports: No Symptoms Integumentary: reports: No Symptoms Neurological: reports: No Symptoms Endocrine: reports: No Symptoms Hematology/Lymphatic: reports: No Symptoms Psychiatric: reports: No Symptoms Vital Signs Period Temp Pulse Resp BP Sys/Miller Pulse Ox Last 24 Hr 97.9 F-98.0 F 67-143 16-24 118-139/81-110 98-100 Constitutional: Yes: No Distress, Calm Eyes: Yes: Conjunctiva Clear, EOM Intact HENT: Yes: Atraumatic, Normocephalic Neck: Yes: Supple, Trachea Midline Respiratory: Yes: Regular, CTA Bilaterally Gastrointestinal: Yes: Normal Bowel Sounds, Soft Cardiovascular: Yes: Regular Rate and Rhythm, Tachycardia JVD: No Carotid Bruit: No PMI: Non-Displaced Heart Sounds: Yes: S1, S2 Musculoskeletal: No: Back Pain Extremities: No: Cold Edema: No Peripheral Pulses WNL: Yes Integumentary: No: Jaundice Neurological: Yes: Alert, Oriented Psychiatric: No: Agitated Laboratory Last Values WBC 6.3 K/mm3 (4.0-10.8) 06/26/19 12:14 RBC 4.02 M/mm3 (4.00-5.60) 06/26/19 12:14 Hgb 12.9 GM/dl (11.7-16.9) 06/26/19 12:14 Hct 38.8 % (35.4-49) 06/26/19 12:14 MCV 96.6 fl (80-96) H 06/26/19 12:14 MCH 32.0 pg (25.7-33.7) 06/26/19 12:14 MCHC 33.2 g/dl (32.0-35.9) 06/26/19 12:14 RDW 16.2 % (11.9-15.9) H 06/26/19 12:14 Plt Count 266 K/MM3 (134-434) 06/26/19 12:14 MPV 8.3 fl (7.5-11.1) 06/26/19 12:14 Absolute Neuts (auto) 4.5 K/mm3 06/26/19 12:14 Neutrophils % 70.9 % (42.8-82.8) 06/26/19 12:14 Lymphocytes % 19.5 % (8-40) 06/26/19 12:14 Monocytes % 8.1 % (3.8-10.2) 06/26/19 12:14 Eosinophils % 1.2 % (0-4.5) 06/26/19 12:14 Basophils % 0.3 % (0-2.0) 06/26/19 12:14 Sodium 135 mmol/L (136-145) L 06/26/19 12:14 Potassium 4.1 mmol/L (3.5-5.1) 06/26/19 12:14 Chloride 99 mmol/L (98-107) 06/26/19 12:14 Carbon Dioxide 24 mmol/L (21-32) 06/26/19 12:14 Anion Gap 12 MMOL/L (8-16) 06/26/19 12:14 BUN 32.0 mg/dl (7-18) H 06/26/19 12:14 Creatinine 1.2 mg/dl (0.55-1.3) 06/26/19 12:14 Est GFR (CKD-EPI)AfAm 65.33 06/26/19 12:14 Est GFR (CKD-EPI)NonAf 56.37 06/26/19 12:14 Random Glucose 101 mg/dl (74-106) 06/26/19 12:14 Calcium 8.7 mg/dl (8.5-10) 06/26/19 12:14 Magnesium 1.9 mg/dL (1.8-2.4) 06/26/19 12:14 Total Bilirubin 1.8 mg/dl (0.2-1) H 06/26/19 12:14 AST 51 U/L (15-37) H 06/26/19 12:14 ALT 54 U/L (13-61) 06/26/19 12:14 Alkaline Phosphatase 135 U/L (45-117) H 06/26/19 12:14 Creatine Kinase 817 U/L (26-308) H 06/25/19 21:33 Creatine Kinase Index 3.4 % (0.0-5.0) 06/25/19 21:33 CK-MB (CK-2) 28.5 ng/mL (0.5-3.6) H 06/25/19 21:33 Troponin I < 0.03 ng/ml (0.00-0.05) 06/25/19 21:54 B-Natriuretic Peptide 5517.4 pg/ml (5-450) H 06/25/19 21:33 Total Protein 6.9 g/dl (6.4-8.2) 06/26/19 12:14 Albumin 3.7 g/dl (3.4-5.0) 06/26/19 12:14 Assessment/Plan EKG: afib with RVR, no ischemic changes Echo 10/2018 [facility] nl LV function, E/A reversal, nl RV, mild MAC, mild MR, mild TR , mod to severe mean gradient 22 mmHg, CARINA 0.96 cm2 by continuity, mild AR CXR: clay pleural effusions tele: afib 90s-110s, episodes 130s shortness of breath, edema, acute on chronic diastolic HF exacerbation - likely acute on chronic diastolic HF exacerbation - also with history of - mod to severe on echo 10/2018 - cont IV lasix 40 mg BID - rate control for afib - echo pending afib with RVR - cont eliquis - change metoprolol to 50 mg daily - monitoring on tele HLD - cont lipitor
[2019-06-26] MEDS: GABAPENTIN 100 MG CAPSULE (FP) PO SCH ×2 (14:58→21:50)
[2019-06-26] MEDS ORDERED: POTASSIUM CHLORIDE TABS 20 MEQ TABLET.ER (FP) PO ONE (15:00)
--- NOTE | 2019-06-26 16:36 | HP ---
Documentation entered by Alana Mann SCRIBE, acting as scribe for Lizbeth Tran NP. CHIEF COMPLAINT: Edema PCP:Dr. Ferguson Vascular: Dr. Green Cardiology: Dr. Christy HISTORY OF PRESENT ILLNESS: 83 year-old male with a PMH significant for HLD, afib/aflutter on Eliquis, diastolic heart failure, BPH, and chronic RLE venous ulcer. Follows with cardiology Dr. Christy. Was seen by Dr. Christy about a month ago with symptoms of SOB and RAMIREZ. He was recommended for an echo and nuclear stress but patient did not follow through, did not make the appointment. About a week ago patient called Dr. Christy to report b/l lower extremity edema. Told to go to an ED but he did not. Patient presents today to the [place] ED with SOB, RAMIREZ, congestive cough, and lower extremity edema. ER course was notable for: (1) HR 143 (2) BNP 5517 (3) CXR: bilateral pleural effusions L>R Recent Travel: None Reported. PAST MEDICAL HISTORY: Hyperlipidemia Afib/aflutter Diastolic heart failure BPH Chronic RLE venous ulcer PAST SURGICAL HISTORY: Vein stripping right leg x 2 Social History: Smoking: never Alcohol: no Drugs: no Allergies bacitracin Allergy (Intermediate, Verified 06/25/19 21:52) swelling of eye PT STATES THAT IT WAS AN EYE DROP THAT HE TOOK YEARS AGO. PT STATES THAT HE TOLERATES BACITRACIN OINTMENT HOME MEDICATIONS: Home Medications Medication Instructions Recorded Atorvastatin Ca [Lipitor] 20 mg PO HS 04/03/14 Tamsulosin HCl 0.4 mg PO BID 04/03/14 Apixaban [Eliquis] 5 mg PO BID #60 tablet 10/04/18 Metoprolol Succinate [Toprol XL -] 25 mg PO DAILY #30 tab.sr.24h 10/04/18 Denosumab [Prolia -] 60 mg SCJ ASDIR 12/28/18 Gabapentin [Neurontin] 1 cap PO TID 12/28/18 Clobetasol Propionate/Emoll 1 applic TP BID 01/25/19 [Clobetasol Emollient 0.05% Crm] REVIEW OF SYSTEMS CONSTITUTIONAL: Absent: fever, chills, diaphoresis, generalized weakness, malaise, loss of appetite, weight change HEENT: Absent: rhinorrhea, nasal congestion, throat pain, throat swelling, difficulty swallowing, mouth swelling, ear pain, eye pain, visual changes CARDIOVASCULAR: +SOB, RAMIREZ, congestive cough, lower extremity edema Absent: chest pain, syncope, palpitations, irregular heart rate, lightheadedness , peripheral edema RESPIRATORY: +cough.+shortness of breath. Absent: dyspnea with exertion, orthopnea, wheezing, stridor, hemoptysis GASTROINTESTINAL: Absent: abdominal pain, abdominal distension, nausea, vomiting, diarrhea, constipation, melena, hematochezia GENITOURINARY: Absent: dysuria, frequency, urgency, hesitancy, hematuria, flank pain, genital pain MUSCULOSKELETAL: +bilateral swelling to legs. Absent: myalgia, arthralgia,back pain, neck pain SKIN: Absent: rash, itching, pallor HEMATOLOGIC/IMMUNOLOGIC: Absent: easy bleeding, easy bruising, lymphadenopathy, frequent infections ENDOCRINE: Absent: unexplained weight gain, unexplained weight loss, heat intolerance, cold intolerance NEUROLOGIC: Absent: headache, focal weakness or paresthesias, dizziness, unsteady gait, seizure, mental status changes, bladder or bowel incontinence PSYCHIATRIC: Absent: anxiety, depression, suicidal or homicidal ideation, hallucinations. PHYSICAL EXAMINATION Vital Signs - 24 hr 06/25/19 06/25/19 06/25/19 20:09 21:50 22:25 Temperature 97.9 F Pulse Rate 67 Pulse Rate [ 127 H 118 H Apical] Respiratory 20 24 H 20 Rate Blood Pressure 135/84 Blood Pressure 118/90 120/98 [Right Arm] O2 Sat by Pulse 99 99 98 Oximetry (%) 06/25/19 06/26/19 06/26/19 23:05 00:00 00:11 Temperature 98.0 F Pulse Rate 110 H Pulse Rate [ 108 H 112 H Apical] Respiratory 20 20 17 Rate Blood Pressure 139/81 Blood Pressure 139/99 128/110 H [Right Arm] O2 Sat by Pulse 99 100 Oximetry (%) 06/26/19 06/26/19 06/26/19 01:14 02:30 04:56 Temperature 98.0 F Pulse Rate 110 H 110 H 143 H Pulse Rate [ Apical] Respiratory 17 17 17 Rate Blood Pressure 139/81 135/94 131/99 Blood Pressure [Right Arm] O2 Sat by Pulse 100 Oximetry (%) 06/26/19 06/26/19 05:31 07:47 Temperature Pulse Rate 133 H Pulse Rate [ Apical] Respiratory 16 Rate Blood Pressure 123/93 Blood Pressure [Right Arm] O2 Sat by Pulse 99 Oximetry (%) GENERAL: A&Ox3 in no acute distress. HEAD: Normal with no signs of trauma. EYES: Pupils equal, round and reactive to light, extraocular movements intact, sclera anicteric, conjunctiva clear. LUNGS:bibasilar crackles. HEART: Irregular S1 and S2. ABDOMEN: Soft, nontender, not distended, MUSCULOSKELETAL: Normal range of motion at all joints. No bony deformities or tenderness. No CVA tenderness. UPPER EXTREMITIES: 2+ pulses, warm, well-perfused. No cyanosis. No clubbing. No peripheral edema. LOWER EXTREMITIES: 3+edema on left, 1+ on right but compression stocking worn regularly on that leg; venous ulcer on the right medial maleolus NEUROLOGICAL: Cranial nerves II-XII intact. Normal speech. Laboratory Results - last 24 hr 06/25/19 06/25/19 06/25/19 21:33 21:33 21:33 WBC 7.4 RBC 3.97 L Hgb 12.4 Hct 38.9 MCV 98.0 H MCH 31.3 MCHC 31.9 L RDW 16.1 H Plt Count 285 MPV 8.3 Absolute Neuts (auto) 5.1 Neutrophils % 70.7 Lymphocytes % 17.0 Monocytes % 8.8 Eosinophils % 0.7 Basophils % 2.8 H Sodium 135 L Potassium 4.6 Chloride 107 Carbon Dioxide 18 L Anion Gap 10 BUN 36.0 H Creatinine 1.2 Est GFR (CKD-EPI)AfAm 65.33 Est GFR (CKD-EPI)NonAf 56.37 Random Glucose 114 H Calcium 8.7 Total Bilirubin 1.5 H AST 55 H ALT 54 Alkaline Phosphatase 135 H Creatine Kinase 817 H Creatine Kinase Index 3.4 CK-MB (CK-2) 28.5 H Troponin I B-Natriuretic Peptide 5517.4 H Total Protein 6.8 Albumin 3.6 06/25/19 21:54 WBC RBC Hgb Hct MCV MCH MCHC RDW Plt Count MPV Absolute Neuts (auto) Neutrophils % Lymphocytes % Monocytes % Eosinophils % Basophils % Sodium Potassium Chloride Carbon Dioxide Anion Gap BUN Creatinine Est GFR (CKD-EPI)AfAm Est GFR (CKD-EPI)NonAf Random Glucose Calcium Total Bilirubin AST ALT Alkaline Phosphatase Creatine Kinase Creatine Kinase Index CK-MB (CK-2) Troponin I < 0.03 B-Natriuretic Peptide Total Protein Albumin ASSESSMENT/PLAN 83 year-old male with a PMH significant for HLD, afib/aflutter on Eliquis, BPH, and chronic RLE venous ulcer. Admitted for acute on chronic diastolic heart failure. Acute on chronic diastolic heart failure Moderate to severe aortic stenosis --10/04/18 Echo: LV normal; RV normal; mild MR; mild TR; moderate to severe 0.96cm2, mild AI; trace PI --BNP 5517 --bilateral pleural effusions --Lasix IVP 40mg BID Atrial fibrillation/flutter --rate to 130s, increase ToprolXL to 50mg daily --continue Eliquis --telemetry monitoring Hyperlipidemia --continue Lipitor BPH --continue tamsulosin Chronic RLE venous ulcer --[facility] and also has private duty nurse that comes daily to his home --dress with silver alginate daily - supples come from [facility] FEN Fluids: PO intake adequate Electrolytes: replete as indicated Nutrition: low sodium DVT prophylaxis: on Eliquis Physical therapy Dispo: continues to require inpatient care. Discussed with Dr. Christy, once ready for discharge, prescribe Lasix 80mg daily and follow up with her in office in one week. Full code. Visit type - Emergency Visit Emergency Visit: Yes ED Registration Date: 06/25/19 Care time: The patient presented to the Emergency Department on the above date and was hospitalized for further evaluation of their emergent condition. - New Patient This patient is new to me today: Yes Date on this admission: 06/26/19 - Critical Care Critical Care patient: No Lizbeth Tran, ENVIRONMENTAL LAW PROFESSOR: This documentation has been prepared by the Johnathan lopez Maria, SCRIBE, under my direction and personally reviewed by me in its entirety. I confirm that the documentation accurately reflects all work, treatment, procedures, and medical decision making performed by me.
--- NOTE | 2019-06-26 17:11 | ECHO ---
Name: BIA COLES Exam:Adult Echocardiogram Study Date: 06/26/2019 03:50 PM Age: 83 yrs MMode/2D Measurements & Calculations IVSd: 0.95 cm Ao root diam: 2.9 cm LVIDd: 3.9 cm LA dimension: 4.0 cm LVIDs: 3.6 cm LVPWd: 1.1 cm LVPWs: 1.5 cm EDV(Teich): 65.2 ml ESV(Teich): 52.9 ml LVOT diam: 2.5 cm Doppler Measurements & Calculations Ao V2 max: 209.7 cm/sec LV V1 max P.2 mmHg Ao max P.6 mmHg LV V1 max: 54.0 cm/sec CARINA(V,D): 1.2 cm2 TR max yola: 237.2 cm/sec PA V2 max: 62.8 cm/sec TR max P.8 mmHg PA max P.6 mmHg Procedure A complete two-dimensional transthoracic echocardiogram was performed (2D, M-mode, Doppler and color flow Doppler). Left Ventricle The left ventricle is normal in size. Left ventricular systolic function is severely reduced. Ejectio n Fraction = 20-25%. No regional wall motion abnormalities noted. Right Ventricle The right ventricle is not well visualized. Atria The left atrium is mildly dilated. The right atrium is mildly dilated. Mitral Valve There is mild mitral valve thickening. There is mild mitral annular calcification. There is mild mitr al regurgitation. Tricuspid Valve The tricuspid valve is normal in structure and function. There is mild to moderate tricuspid regurgit ation. Pulmonary artery systolic pressure is at least 32 mmHg if RA pressure is assumed 3 mmHg. Aortic Valve There is moderate aortic valve thickening. Mild aortic regurgitation. Pulmonic Valve The pulmonic valve is not well visualized. Great Vessels The aortic root is normal size. Pericardium/Pleura There is no pericardial effusion. Interpretation Summary The left ventricle is normal in size. Left ventricular systolic function is severely reduced. No regional wall motion abnormalities noted. Ejection Fraction = 20-25%. The right ventricle is not well visualized. The left atrium is mildly dilated. The right atrium is mildly dilated. There is mild mitral valve thickening. There is mild mitral annular calcification. There is mild mitral regurgitation. There is mild to moderate tricuspid regurgitation. Pulmonary artery systolic pressure is at least 32 mmHg if RA pressure is assumed 3 mmHg There is moderate aortic valve thickening. Mild aortic regurgitation. There is no pericardial effusion. Pedro Diaz MD 06/26/2019 05:11 PM
[2019-06-26] MEDS: ATORVASTATIN CA 20 MG TABLET (FP) PO SCH (21:50)
[2019-06-27] MEDS: GABAPENTIN 100 MG CAPSULE (FP) PO SCH ×3 (05:56→21:25)
[2019-06-27] MEDS: FUROSEMIDE 40 MG/4 ML INJECTABLE VIAL IVPUSH SCH ×2 (05:56→14:15)
[2019-06-27 09:36] LABS: BASO % 0.9 % (0-2.0); EOS % 1.9 % (0-4.5); HEMATOCRIT 40.6 % (35.4-49); HEMOGLOBIN 13.6 GM/dl (11.7-16.9); LYMPH % 23.3 % (8-40); MCH 32.7 pg (25.7-33.7); MCHC 33.4 g/dl (32.0-35.9); MEAN CELL VOLUME 97.7 fl (80-96); MEAN PLT VOLUME 8.3 fl (7.5-11.1); MONO % 7.5 % (3.8-10.2); NEUT % 66.4 % (42.8-82.8); PLATELET COUNT 302 K/MM3 (134-434); RBC 4.16 M/mm3 (4.00-5.60); RDW 16.5 % (11.9-15.9); WHITE BLOOD COUNT 6.7 K/mm3 (4.0-10.8)
[2019-06-27] MEDS: TAMSULOSIN HCL 0.4 MG CAP PO SCH ×2 (09:36→21:13)
[2019-06-27] MEDS: APIXABAN 5 MG TABLET PO SCH ×2 (09:36→21:14)
[2019-06-27 09:46] LABS: ALBUMIN 3.7 g/dl (3.4-5.0); BILIRUBIN,TOTAL 1.2 mg/dl (0.2-1); CALCIUM 8.5 mg/dl (8.5-10); CREATININE 1.3 mg/dl (0.55-1.3); MAGNESIUM 1.8 mg/dL (1.8-2.4); POTASSIUM 4.4 mmol/L (3.5-5.1); TOT PROT 7.1 g/dl (6.4-8.2)
--- NOTE | 2019-06-27 09:47 | PN ---
Progress Note, Physician Chief Complaint: Feels comfortable History of Present Illness: 83M h/o PVD, chronic venous stasis ulcer, afib/flutter on eliquis p/w shortness of breath. moderate ECHO shows EF 25% - Current Medication List Current Medications: Active Medications Apixaban (Eliquis -) 5 mg PO BID [facility] Last Admin: 06/27/19 09:36 Dose: 5 mg Atorvastatin Calcium (Lipitor -) 20 mg PO HS [facility] Last Admin: 06/26/19 21:50 Dose: 20 mg Furosemide (Lasix Injection -) 40 mg IVPUSH BIDLASIX [facility] Last Admin: 06/27/19 05:56 Dose: 40 mg Gabapentin (Neurontin -) 100 mg PO TID [facility] Last Admin: 06/27/19 05:56 Dose: 100 mg Metoprolol Succinate (Toprol Xl -) 50 mg PO DAILY [facility] Last Admin: 06/27/19 09:36 Dose: 50 mg Tamsulosin HCl (Flomax -) 0.4 mg PO BID [facility] Last Admin: 06/27/19 09:36 Dose: 0.4 mg - Objective Vital Signs: Vital Signs Temperature 97.7 F 06/27/19 02:00 Pulse Rate 105 H 06/27/19 02:00 Respiratory Rate 17 06/27/19 08:25 Blood Pressure 107/76 06/27/19 02:00 O2 Sat by Pulse Oximetry (%) 98 06/27/19 08:25 Elderly M comfortable not in distress HEENT: Mm moist, no anemia, PERRLA EOMI NECK: No JVd No Bruit CHEST: B/L crepts CVS; SS2 SM in AA ABD: No distention, non tender BS + EXT: Trace edema feet [employer]: AOX3 non focal Labs: CBC, BMP 06/27/19 08:50 Problem List - Problems (1) Acute exacerbation of congestive heart failure Assessment/Plan: New echo shows systolic heart failure 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 Problems reviewed: Yes Code(s): I50.9 - HEART FAILURE, UNSPECIFIED Qualifiers: Heart failure type: systolic Qualified Code(s): I50.23 - Acute on chronic systolic (congestive) heart failure (2) Atrial fibrillation Assessment/Plan: Rate is poorly controlled still intermittent RVR, will follow cardiology recommendations. Problems reviewed: Yes Code(s): I48.91 - UNSPECIFIED ATRIAL FIBRILLATION Qualifiers: Atrial fibrillation type: unspecified Qualified Code(s): I48.91 - Unspecified atrial fibrillation (3) Aortic stenosis Assessment/Plan: Moderate aortic valve stenosis with mild regurgitation stable. Problems reviewed: Yes Code(s): I35.0 - NONRHEUMATIC AORTIC (VALVE) STENOSIS (4) BPH (benign prostatic hyperplasia) Assessment/Plan: On Flomax Problems reviewed: Yes Code(s): N40.0 - BENIGN PROSTATIC HYPERPLASIA WITHOUT LOWER URINRY TRACT SYMP Assessment/Plan Cont current management Discussed with Cardiology metoprolol incresed for rate control if rate control DC in am.
--- NOTE | 2019-06-27 10:30 | PN ---
Progress Note (short form) - Note Progress Note: s: edema, dyspnea improving. no chest pain, palps, dizziness Current Medications Apixaban (Eliquis -) 5 mg PO BID [facility] Last Admin: 06/27/19 09:36 Dose: 5 mg Atorvastatin Calcium (Lipitor -) 20 mg PO HS [facility] Last Admin: 06/26/19 21:50 Dose: 20 mg Furosemide (Lasix Injection -) 40 mg IVPUSH BIDLASIX [facility] Last Admin: 06/27/19 05:56 Dose: 40 mg Gabapentin (Neurontin -) 100 mg PO TID [facility] Last Admin: 06/27/19 05:56 Dose: 100 mg Metoprolol Succinate (Toprol Xl -) 50 mg PO BID [facility] Tamsulosin HCl (Flomax -) 0.4 mg PO BID [facility] Last Admin: 06/27/19 09:36 Dose: 0.4 mg Vital Signs Period Temp Pulse Resp BP Sys/Miller Pulse Ox Last 24 Hr 97.9 F-98.0 F 67-143 16-24 118-139/81-110 98-100 Constitutional: Yes: No Distress, Calm Eyes: Yes: Conjunctiva Clear, EOM Intact HENT: Yes: Atraumatic, Normocephalic Neck: Yes: Supple, Trachea Midline Respiratory: Yes: Regular, CTA Bilaterally Gastrointestinal: Yes: Normal Bowel Sounds, Soft Cardiovascular: Yes: Regular Rate and Rhythm, Tachycardia JVD: No Carotid Bruit: No PMI: Non-Displaced Heart Sounds: Yes: S1, S2 Musculoskeletal: No: Back Pain Extremities: No: Cold Edema: No Peripheral Pulses WNL: Yes Integumentary: No: Jaundice Neurological: Yes: Alert, Oriented Psychiatric: No: Agitated Assessment/Plan EKG: afib with RVR, no ischemic changes Echo 10/2018 [facility] nl LV function, E/A reversal, nl RV, mild MAC, mild MR, mild TR , mod to severe mean gradient 22 mmHg, CARINA 0.96 cm2 by continuity, mild AR echo 06/2019 severely reduced LV function EF 20-25%, LA/RA mildly dilated, RV not well visualized, mild MR, mild ot mod TR PASP at least 32 mmHg, mod AV thickening ( study not done), mild AR CXR: clay pleural effusions tele: afib 90s-110s, episodes 130s shortness of breath, edema, acute systolic HF exacerbation - likely acute systolic HF exacerbation - EF down on echo here 20-25% - also with history of - mod to severe on echo 10/2018, not evaluated on echo here - cont IV lasix 40 mg BID - rate control for afib afib with RVR - cont eliquis - change metoprolol to 50 mg BID - monitoring on tele HLD - cont lipitor
[2019-06-27] MEDS ORDERED: metoPROLOL SUCCINATE 25 MG TAB.SR.24H (FP) PO ONE (14:47)
[2019-06-27] MEDS: ATORVASTATIN CA 20 MG TABLET (FP) PO SCH (21:13)
[2019-06-28] MEDS: FUROSEMIDE 40 MG/4 ML INJECTABLE VIAL IVPUSH SCH ×2 (06:42→13:06)
[2019-06-28] MEDS: GABAPENTIN 100 MG CAPSULE (FP) PO SCH ×3 (06:43→21:02)
[2019-06-28] MEDS: METOPROLOL TARTRATE 5 MG/5 ML VIAL IVPUSH PRN ×2 (09:10→16:40)
[2019-06-28] MEDS: APIXABAN 5 MG TABLET PO SCH ×2 (10:15→21:01)
[2019-06-28] MEDS: TAMSULOSIN HCL 0.4 MG CAP PO SCH ×2 (10:15→21:02)
[2019-06-28 10:25] LABS: MAGNESIUM 2.2 mg/dL (1.8-2.4)
[2019-06-28 10:28] LABS: EOS % 2.2 % (0-4.5); HEMATOCRIT 38.9 % (35.4-49); HEMOGLOBIN 12.9 GM/dL (11.7-16.9); LYMPH % 20.8 % (8-40); MCH 31.9 pg (25.7-33.7); MCHC 33.2 g/dl (32.0-35.9); MEAN CELL VOLUME 96.1 fl (80-96); MONO % 8.6 % (3.8-10.2); NEUT % 67.4 % (42.8-82.8); PLATELET COUNT 282 K/MM3 (134-434); RBC 4.05 M/mm3 (4.00-5.60); RDW 16.3 % (11.9-15.9); WHITE BLOOD COUNT 6.2 K/mm3 (4.0-10.0)
[2019-06-28 11:49] LABS: BLOOD UREA NITROGEN 31.1 mg/dL (7-18); CALCIUM 8.9 mg/dL (8.5-10.1); CREATININE 1.2 mg/dL (0.55-1.3); POTASSIUM 4.2 mmol/L (3.5-5.1)
--- NOTE | 2019-06-28 12:39 | PN ---
Progress Note, Physician Chief Complaint: Feels comfortable, walking comfortable History of Present Illness: 83M h/o PVD, chronic venous stasis ulcer, afib/flutter on eliquis p/w shortness of breath. moderate ECHO shows EF 25% - Current Medication List Current Medications: Active Medications Apixaban (Eliquis -) 5 mg PO BID [facility] Last Admin: 06/28/19 10:15 Dose: 5 mg Atorvastatin Calcium (Lipitor -) 20 mg PO HS [facility] Last Admin: 06/27/19 21:13 Dose: 20 mg Furosemide (Lasix Injection -) 40 mg IVPUSH BIDLASIX [facility] Last Admin: 06/28/19 06:42 Dose: 40 mg Gabapentin (Neurontin -) 100 mg PO TID [facility] Last Admin: 06/28/19 06:43 Dose: Not Given Metoprolol Succinate (Toprol Xl -) 50 mg PO BID [facility] Last Admin: 06/28/19 10:15 Dose: 50 mg Metoprolol Tartrate (Lopressor Injection -) 5 mg IVPUSH Q4H PRN PRN Reason: HEART RATE > 130 Last Admin: 06/28/19 09:10 Dose: 5 mg Tamsulosin HCl (Flomax -) 0.4 mg PO BID [facility] Last Admin: 06/28/19 10:15 Dose: 0.4 mg - Objective Vital Signs: Vital Signs Temperature 97.9 F 06/28/19 10:00 Pulse Rate 117 H 06/28/19 10:00 Respiratory Rate 20 06/28/19 10:00 Blood Pressure 114/78 06/28/19 10:00 O2 Sat by Pulse Oximetry (%) 94 L 06/28/19 06:00 Elderly M comfortable not in distress HEENT: Mm moist, no anemia, PERRLA EOMI NECK: No JVd No Bruit CHEST: Kyphoscoliosis B/Lbasal crepts CVS; SS2 SM in AA ABD: No distention, non tender BS + EXT: Trace edema feet [employer]: AOX3 non focal Labs: CBC, BMP 06/28/19 06:00 06/28/19 06:00 Problem List - Problems (1) Acute exacerbation of congestive heart failure Assessment/Plan: New echo shows systolic heart failure 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 Code(s): I50.9 - HEART FAILURE, UNSPECIFIED Qualifiers: Heart failure type: systolic Qualified Code(s): I50.23 - Acute on chronic systolic (congestive) heart failure (2) Atrial fibrillation Assessment/Plan: Rate is poorly controlled still intermittent RVR, will follow cardiology recommendations. Code(s): I48.91 - UNSPECIFIED ATRIAL FIBRILLATION Qualifiers: Atrial fibrillation type: unspecified Qualified Code(s): I48.91 - Unspecified atrial fibrillation (3) Aortic stenosis Assessment/Plan: Moderate aortic valve stenosis with mild regurgitation stable. Code(s): I35.0 - NONRHEUMATIC AORTIC (VALVE) STENOSIS (4) BPH (benign prostatic hyperplasia) Assessment/Plan: On Flomax Code(s): N40.0 - BENIGN PROSTATIC HYPERPLASIA WITHOUT LOWER URINRY TRACT SYMP (5) Hypercholesteremia Assessment/Plan: Continue statin Problems reviewed: Yes Code(s): E78.00 - PURE HYPERCHOLESTEROLEMIA, UNSPECIFIED
[2019-06-28] MEDS ORDERED: metoPROLOL SUCCINATE 25 MG TAB.SR.24H (FP) PO ONE (12:40)
--- NOTE | 2019-06-28 13:08 | PN ---
Progress Note (short form) - Note Progress Note: s: edema, dyspnea better. no chest pain, palps, dizziness Current Medications Apixaban (Eliquis -) 5 mg PO BID [facility] Last Admin: 06/28/19 10:15 Dose: 5 mg Atorvastatin Calcium (Lipitor -) 20 mg PO HS [facility] Last Admin: 06/27/19 21:13 Dose: 20 mg Furosemide (Lasix Injection -) 40 mg IVPUSH BIDLASIX [facility] Last Admin: 06/28/19 13:06 Dose: 40 mg Gabapentin (Neurontin -) 100 mg PO TID [facility] Last Admin: 06/28/19 06:43 Dose: Not Given Metoprolol Succinate (Toprol Xl -) 75 mg PO Q12H [facility] Metoprolol Tartrate (Lopressor Injection -) 5 mg IVPUSH Q4H PRN PRN Reason: HEART RATE > 130 Last Admin: 06/28/19 09:10 Dose: 5 mg Tamsulosin HCl (Flomax -) 0.4 mg PO BID [facility] Last Admin: 06/28/19 10:15 Dose: 0.4 mg Vital Signs Period Temp Pulse Resp BP Sys/Miller Pulse Ox Last 24 Hr 97.3 F-98.1 F 103-135 18-20 95-115/73-83 94-97 Constitutional: Yes: No Distress, Calm Eyes: Yes: Conjunctiva Clear, EOM Intact HENT: Yes: Atraumatic, Normocephalic Neck: Yes: Supple, Trachea Midline Respiratory: Yes: Regular, CTA Bilaterally Gastrointestinal: Yes: Normal Bowel Sounds, Soft Cardiovascular: Yes: Regular Rate and Rhythm, Tachycardia JVD: No Carotid Bruit: No PMI: Non-Displaced Heart Sounds: Yes: S1, S2 Musculoskeletal: No: Back Pain Extremities: No: Cold Edema: No Peripheral Pulses WNL: Yes Integumentary: No: Jaundice Neurological: Yes: Alert, Oriented Psychiatric: No: Agitated Assessment/Plan EKG: afib with RVR, no ischemic changes Echo 10/2018 [facility] nl LV function, E/A reversal, nl RV, mild MAC, mild MR, mild TR , mod to severe mean gradient 22 mmHg, CARINA 0.96 cm2 by continuity, mild AR echo 06/2019 severely reduced LV function EF 20-25%, LA/RA mildly dilated, RV not well visualized, mild MR, mild ot mod TR PASP at least 32 mmHg, mod AV thickening ( study not done), mild AR CXR: clay pleural effusions tele: afib 90s-110s, episodes 130s shortness of breath, edema, acute systolic HF exacerbation - likely acute systolic HF exacerbation - EF down on echo here 20-25% - also with history of - mod to severe on echo 10/2018, not evaluated on echo here - cont IV lasix 40 mg BID - repeat cxr in AM - rate control for afib afib with RVR - cont eliquis - inc metoprolol to 75 mg BID - monitoring on tele HLD - cont lipitor
[2019-06-28] MEDS: metoPROLOL SUCCINATE 25 MG TAB.SR.24H (FP) PO SCH (21:01)
[2019-06-28] MEDS: ATORVASTATIN CA 20 MG TABLET (FP) PO SCH (21:01)
[2019-06-29] MEDS: GABAPENTIN 100 MG CAPSULE (FP) PO SCH (06:12)
[2019-06-29] MEDS: FUROSEMIDE 40 MG/4 ML INJECTABLE VIAL IVPUSH SCH (06:12)
[2019-06-29 07:58] LABS: BASO % 0.6 % (0-2.0); EOS % 2.4 % (0-4.5); HEMATOCRIT 39.4 % (35.4-49); HEMOGLOBIN 12.7 GM/dl (11.7-16.9); LYMPH % 23.2 % (8-40); MCH 31.8 pg (25.7-33.7); MCHC 32.3 g/dl (32.0-35.9); MEAN CELL VOLUME 98.4 fl (80-96); NEUT % 65.8 % (42.8-82.8); PLATELET COUNT 317 K/MM3 (134-434); RDW 16.2 % (11.9-15.9); WHITE BLOOD COUNT 6.6 K/mm3 (4.0-10.8)
[2019-06-29 08:04] LABS: CALCIUM 8.8 mg/dl (8.5-10); CREATININE 1.3 mg/dl (0.55-1.3); POTASSIUM 3.9 mmol/L (3.5-5.1)
[2019-06-29] MEDS: metoPROLOL SUCCINATE 25 MG TAB.SR.24H (FP) PO SCH (09:11)
[2019-06-29] MEDS: APIXABAN 5 MG TABLET PO SCH (09:11)
[2019-06-29] MEDS: TAMSULOSIN HCL 0.4 MG CAP PO SCH (09:11)
[2019-06-29 11:27] VITALS: BP 110/69; PULSE 92; TEMP 97.5
--- NOTE | 2019-06-29 12:17 | DS ---
Physical Examination Vital Signs: Vital Signs Temperature 97.5 F L 06/29/19 10:00 Pulse Rate 92 H 06/29/19 10:00 Respiratory Rate 18 06/29/19 10:00 Blood Pressure 110/69 06/29/19 10:00 O2 Sat by Pulse Oximetry (%) 98 06/29/19 10:00 Labs: CBC, BMP 06/29/19 07:25 06/29/19 07:25 Discharge Summary Problems reviewed: Yes Reason For Visit: BLE SWELLING Current Active Problems Acute exacerbation of congestive heart failure (Acute) Aortic stenosis (Acute) Atrial fibrillation (Acute) BPH (benign prostatic hyperplasia) (Acute) Congestive heart failure (CHF) (Acute) Hypercholesteremia (Acute) Condition: Good - Instructions - Home Medications Comprehensive Discharge Medication List: Ambulatory Orders Atorvastatin Ca [Lipitor] 20 mg PO HS 04/03/14 Tamsulosin HCl 0.4 mg PO BID 04/03/14 Apixaban [Eliquis] 5 mg PO BID #60 tablet 10/04/18 Metoprolol Succinate [Toprol XL -] 25 mg PO DAILY #30 tab.sr.24h 10/04/18 Denosumab [Prolia -] 60 mg SCJ ASDIR 12/28/18 Gabapentin [Neurontin] 1 cap PO TID 12/28/18 Clobetasol Propionate/Emoll [Clobetasol Emollient 0.05% Crm] 1 applic TP BID
[2019-06-29 12:47] VITALS: BMI 20.7
--- NOTE | 2019-06-29 14:23 | DS ---
Physical Exam: SUBJECTIVE: Patient seen and examined OBJECTIVE: Vital Signs Period Temp Pulse Resp BP Sys/Miller Pulse Ox Last 24 Hr 97.5 F-98.4 F 81-123 16-19 97-114/60-85 98-99 PHYSICAL EXAM GENERAL: The patient is awake, alert, and fully oriented, in no acute distress. HEAD: Normal with no signs of trauma. EYES: PERRL, extraocular movements intact, sclera anicteric, conjunctiva clear. ENT: Ears normal, nares patent, oropharynx clear without exudates, moist mucous membranes. NECK: Trachea midline, full range of motion, supple. LUNGS: Breath sounds equal, clear to auscultation bilaterally, no wheezes, no crackles, no accessory muscle use. HEART: S1 S2 tachycardic ABDOMEN: Soft, nontender, nondistended, normoactive bowel sounds, no guarding, no rebound, no hepatosplenomegaly, no masses. EXTREMITIES: 2+ pulses, warm, well-perfused, pitting edema +2 BLLE, Venous ulcer on right foot. NEUROLOGICAL: Cranial nerves II through XII grossly intact. Normal speech PSYCH: Normal mood, normal affect. SKIN: Warm, dry, normal turgor, no rashes or lesions noted. LABS Laboratory Results - last 24 hr 06/29/19 06/29/19 07:25 07:25 WBC 6.6 RBC 4.00 Hgb 12.7 Hct 39.4 MCV 98.4 H MCH 31.8 MCHC 32.3 RDW 16.2 H Plt Count 317 MPV 8.0 Absolute Neuts (auto) 4.4 Neutrophils % 65.8 Lymphocytes % 23.2 Monocytes % 8.0 Eosinophils % 2.4 Basophils % 0.6 Sodium 138 Potassium 3.9 Chloride 99 Carbon Dioxide 27 Anion Gap 12 BUN 35.0 H Creatinine 1.3 Est GFR (CKD-EPI)AfAm 59.31 Est GFR (CKD-EPI)NonAf 51.17 Random Glucose 100 Calcium 8.8 HOSPITAL COURSE: Date of Admission:06/25/19 Date of Discharge: 06/29/19 Assessment/Plan 83 year-old male with a PMH significant for HLD, afib/aflutter on Eliquis, BPH, and chronic RLE venous ulcer. Admitted for acute on chronic diastolic heart failure. 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 40mg Lasix IV Push BID Code(s): I50.9 - HEART FAILURE, UNSPECIFIED Qualifiers: Heart failure type: systolic Qualified Code(s): I50.23 - Acute on chronic systolic (congestive) heart failure (2) Atrial fibrillation Assessment/Plan: Rate is poorly controlled still intermittent RVR. Increase Metoprolol 75mg PO BID Code(s): I48.91 - UNSPECIFIED ATRIAL FIBRILLATION Qualifiers: Atrial fibrillation type: unspecified Qualified Code(s): I48.91 - Unspecified atrial fibrillation (3) Aortic stenosis Assessment/Plan: Moderate aortic valve stenosis with mild regurgitation stable. Code(s): I35.0 - NONRHEUMATIC AORTIC (VALVE) STENOSIS (4) BPH (benign prostatic hyperplasia) Assessment/Plan: On Flomax Code(s): N40.0 - BENIGN PROSTATIC HYPERPLASIA WITHOUT LOWER URINRY TRACT SYMP (5) Hypercholesteremia Assessment/Plan: Continue statin Problems reviewed: Yes Code(s): E78.00 - PURE HYPERCHOLESTEROLEMIA, UNSPECIFIED Minutes to complete discharge: 35 Discharge Summary Problems reviewed: Yes Reason For Visit: BLE SWELLING Condition: Good - Instructions Diet, Activity, Other Instructions: Follow Up with [employer] Dr. Elissa Christy next week. Prescriptions: Your Metoprolol is increased to 75mg by mouth twice a day New: Lasix 40mg by mouth twice a day Referrals: Elissa Christy MD [Staff Physician] - Disposition: HOME - Home Medications Comprehensive Discharge Medication List: Ambulatory Orders Atorvastatin Ca [Lipitor] 20 mg PO HS 04/03/14 Tamsulosin HCl 0.4 mg PO BID 04/03/14 Apixaban [Eliquis] 5 mg PO BID #60 tablet 10/04/18 Denosumab [Prolia -] 60 mg SCJ ASDIR 12/28/18 Gabapentin [Neurontin] 1 cap PO TID 12/28/18 Clobetasol Propionate/Emoll [Clobetasol Emollient 0.05% Crm] 1 applic TP BID Furosemide [Lasix] 40 mg PO BID 30 Days #60 tablet 06/29/19 Metoprolol Tartrate 75 mg PO BID 30 Days #60 tablet 06/29/19 This patient is new to me today: Yes Date on this admission: 06/29/19 Emergency Visit: Yes ED Registration Date: 06/25/19 Care time: The patient presented to the Emergency Department on the above date and was hospitalized for further evaluation of their emergent condition. Critical Care patient: No - Discharge Referral Referred to [facility] No
--- NOTE | 2019-06-30 13:38 | EKG ---
Test Reason : Blood Pressure : / mmHG Vent. Rate : 107 BPM Atrial Rate : 037 BPM P-R Int : 000 ms QRS Dur : 088 ms QT Int : 374 ms P-R-T Axes : 000 026 044 degrees QTc Int : 499 ms ATRIAL FIBRILLATION WITH RAPID VENTRICULAR RESPONSE NONSPECIFIC T WAVE ABNORMALITY ABNORMAL ECG WHEN COMPARED WITH ECG OF 25-JUN-2019 21:42, NO SIGNIFICANT CHANGE WAS FOUND Confirmed by FREDO JACOBS MD ([id number]) on 06/30/2019 1:38:28 PM Referred By: MD DELAROSA Confirmed By:FREDO JACOBS MD
== END 2019-06-29 13:44 | disposition home or self-care (01) | DRG 308 ==
LOC: FER 20:08 → UNDOADMIN 23:33 → FM/S 23:33 → UNDOADMIN 06-26 00:22 → FM/S 06-26 01:10
PROVIDERS: ADMIT Internal Medicine; ATTEND Nurse Practitioner Acute Care
DX: I48.91 Unspecified atrial fibrillation (principal); I50.33 Acute on chronic diastolic (congestive) heart failure; L97.818 Non-pressure chronic ulcer of other part of right lower leg with other specified severity; I48.92 Unspecified atrial flutter; I42.8 Other cardiomyopathies; E78.5 Hyperlipidemia, unspecified; N40.0 Benign prostatic hyperplasia without lower urinary tract symptoms; I35.0 Nonrheumatic aortic (valve) stenosis; R00.0 Tachycardia, unspecified; K59.09 Other constipation; I73.9 Peripheral vascular disease, unspecified; R06.02 Shortness of breath; R60.9 Edema, unspecified
CPT/HCPCS: 36415; 71045-TC-FY; 71046-TC-FY; 80048; 80053; 82550; 82553; 83735; 83880; 84443; 84484; 85025; 93005; 93306-TC; 97116-GP; 97162-GP; 99284-25

== ENCOUNTER 2020-06-21 14:45 | Emergency (ER) | payer OTHER, BC ==
[2020-06-21 14:51] VITALS: BP 146/93; PULSE 55; TEMP 97.3; BMI 21.1
[2020-06-21] MEDS ORDERED: OXYMETAZOLINE 0.05% NASAL SOLUTION 15 ML BOTTLE NS ONE ×2 (15:03→15:12)
== END 2020-06-21 15:59 | disposition home or self-care (01) ==
LOC: FER 14:45
DX: R04.0 Epistaxis (principal)
CPT/HCPCS: 99284-25

== ENCOUNTER 2021-07-20 18:06 | Emergency (ER) | payer OTHER, BC ==
[2021-07-20 18:25] VITALS: TEMP 98; BMI 19.8
[2021-07-20] MEDS ORDERED: OXYMETAZOLINE 0.05% NASAL SOLUTION 15 ML BOTTLE NS ONE (19:40)
[2021-07-20 20:49] VITALS: BP 126/74
[2021-07-20 20:50] VITALS: PULSE 76
== END 2021-07-20 20:51 | disposition home or self-care (01) ==
LOC: JER 18:06
DX: R04.0 Epistaxis (principal); I48.20 Chronic atrial fibrillation, unspecified; I50.9 Heart failure, unspecified
CPT/HCPCS: 99283-25

== ENCOUNTER 2021-11-26 14:58 | Emergency (ER) | payer OTHER, BC ==
[2021-11-26 15:43] VITALS: BP 122/80; PULSE 72; TEMP 97.9; BMI 19.8
[2021-11-26 18:27] LABS: BASO % 0.6 % (0-2.0); EOS % 0.8 % (0-4.5); HEMATOCRIT 30.6 % (35.4-49); HEMOGLOBIN 10.3 GM/dL (11.7-16.9); LYMPH % 13.8 % (8-40); MCH 32.8 pg (25.7-33.7); MCHC 33.7 g/dl (32.0-35.9); MEAN CELL VOLUME 97.2 fl (80-96); MEAN PLT VOLUME 6.7 fl (7.5-11.1); MONO % 9.6 % (3.8-10.2); NEUT % 75.2 % (42.8-82.8); PLATELET COUNT 280 10^3/uL (134-434); RBC 3.15 M/mm3 (4.00-5.60); RDW 15.8 % (11.9-15.9); WHITE BLOOD COUNT 6.7 K/mm3 (4.0-10.0)
[2021-11-26 18:35] LABS: INR 1.67 (0.83-1.09); PROTHROMBIN TIME (PATIENT) 19.3 SEC (9.7-13.0)
[2021-11-26 18:37] LABS: ACTIVATED PTT 41.7 SECONDS (25.2-36.5)
[2021-11-26 18:55] LABS: CALCIUM 8.3 mg/dL (8.5-10.1)
[2021-11-26 18:56] LABS: ALBUMIN 3.3 g/dl (3.4-5.0); BLOOD UREA NITROGEN 35.9 mg/dL (7-18)
[2021-11-26 18:59] LABS: CREATININE 1.4 mg/dL (0.55-1.3)
[2021-11-26 19:00] LABS: BILIRUBIN,TOTAL 0.6 mg/dL (0.2-1); TOT PROT 7.1 g/dl (6.4-8.2)
== END 2021-11-26 19:50 | disposition home or self-care (01) ==
LOC: JERFT 14:58 → JER 14:58
DX: K25.4 Chronic or unspecified gastric ulcer with hemorrhage (principal)
CPT/HCPCS: 36415; 80053; 85025; 85610; 85730; 99283-25

== ENCOUNTER 2022-02-13 12:24 | Emergency (ER) | payer OTHER, BC ==
[2022-02-13 12:35] VITALS: RESP 18; TEMP 97.7; BMI 53.4
[2022-02-13] MEDS ORDERED: FUROSEMIDE 40 MG/4 ML INJECTABLE VIAL IVPUSH ONE (13:53)
[2022-02-13] MEDS ORDERED: FUROSEMIDE 40 MG/4 ML INJECTABLE VIAL ONE (14:33)
[2022-02-13 14:56] LABS: EOS % 0.3 % (0-4.5); HEMATOCRIT 29.6 % (35.4-49); HEMOGLOBIN 9.7 GM/dL (11.7-16.9); LYMPH % 14.4 % (8-40); MCH 29.4 pg (25.7-33.7); MCHC 32.8 g/dl (32.0-35.9); MEAN CELL VOLUME 89.5 fl (80-96); MEAN PLT VOLUME 6.8 fl (7.5-11.1); MONO % 8.2 % (3.8-10.2); NEUT % 76.1 % (42.8-82.8); PLATELET COUNT 387 10^3/uL (134-434); RDW 17.3 % (11.9-15.9); WHITE BLOOD COUNT 7.5 K/mm3 (4.0-10.0)
[2022-02-13 15:12] VITALS: BP 126/83; PULSE 110
[2022-02-13 15:24] LABS: ALBUMIN 3.2 g/dl (3.4-5.0); CALCIUM 8.2 mg/dL (8.5-10.1)
[2022-02-13 15:25] LABS: BLOOD UREA NITROGEN 50.4 mg/dL (7-18)
[2022-02-13 15:28] LABS: CREATININE 1.7 mg/dL (0.55-1.3)
[2022-02-13 15:29] LABS: BILIRUBIN,TOTAL 1.1 mg/dL (0.2-1); TOT PROT 7.8 g/dl (6.4-8.2)
== END 2022-02-13 17:51 | disposition home or self-care (01) ==
LOC: JER 12:24
PROC: 3E033GC Introduction of Other Therapeutic Substance into Peripheral Vein, Percutaneous Approach (ICD-10-PCS; principal; 2022-02-13)
DX: R22.43 Localized swelling, mass and lump, lower limb, bilateral (principal)
CPT/HCPCS: 36415; 71046-TC-FY; 80053; 83880; 85025; 99284-25

== ENCOUNTER 2022-02-15 15:31 | Emergency (ER) | payer OTHER, BC ==
[2022-02-15] MEDS ORDERED: EPINEPHrine 1:10,000 (P-F SYR) 1 MG/10 ML DISP.SYRIN ONE ×3 (15:48→16:32)
[2022-02-15] MEDS ORDERED: SODIUM BICARBONATE 8.4% - 150 ML ONE (15:56)
[2022-02-15] MEDS ORDERED: HUM PROTHROMBIN CPLX(PCC)4FACT 1,000 UNIT/40 ML VIAL IV ONE (16:08)
[2022-02-15 16:19] VITALS: RESP 20
[2022-02-15 16:24] LABS: BASO % 1.2 % (0-2.0); EOS % 0.8 % (0-4.5); HEMATOCRIT 19.4 % (35.4-49); LYMPH % 40.2 % (8-40); MCH 29.5 pg (25.7-33.7); MCHC 31.6 g/dl (32.0-35.9); MEAN CELL VOLUME 93.5 fl (80-96); MEAN PLT VOLUME 7.2 fl (7.5-11.1); MONO % 6.8 % (3.8-10.2); PLATELET COUNT 226 10^3/uL (134-434); RBC 2.07 M/mm3 (4.00-5.60); RDW 16.7 % (11.9-15.9); WHITE BLOOD COUNT 7.8 K/mm3 (4.0-10.0)
[2022-02-15 16:27] LABS: HEMOGLOBIN 6.1 GM/dL (11.7-16.9)
[2022-02-15 16:31] LABS: INR 2.08 (0.83-1.09); PROTHROMBIN TIME (PATIENT) 24.1 SEC (9.7-13.0)
[2022-02-15] MEDS ORDERED: AMIODARONE HCL 150 MG/3 ML VIAL ONE (16:32)
[2022-02-15] MEDS ORDERED: SODIUM BICARBONATE 8.4% - 50 ML ONE (16:33)
[2022-02-15 16:34] LABS: ACTIVATED PTT 34.1 SECONDS (25.2-36.5)
[2022-02-15 16:43] LABS: CHLORIDE 103 mmol/L (98-107); SODIUM 144 mmol/L (136-145)
[2022-02-15 16:45] LABS: GLUCOSE,RANDOM 254 mg/dL (74-106)
[2022-02-15 16:46] LABS: ANION GAP 18 MMOL/L (8-16); BLOOD UREA NITROGEN 44.7 mg/dL (7-18); CO2 23 mmol/L (21-32)
[2022-02-15 16:49] LABS: CREATININE 1.5 mg/dL (0.55-1.3); SGOT/AST 952 U/L (15-37); SGPT/ALT 669 U/L (13-61)
[2022-02-15 16:50] LABS: BILIRUBIN,TOTAL 0.5 mg/dL (0.2-1)
[2022-02-15 16:53] LABS: ALBUMIN 1.5 g/dl (3.4-5.0); ALK PHOS 119 U/L (45-117); CALCIUM 6.6 mg/dL (8.5-10.1); LACTIC ACID 14.4 mmol/L (0.4-2.0); TOT PROT 3.8 g/dl (6.4-8.2)
[2022-02-15 18:54] VITALS: BP 0/0; TEMP 95.3; BMI 22.1
== END 2022-02-16 16:05 | disposition expired ==
LOC: JER 15:31
PROC: 3E033GC Introduction of Other Therapeutic Substance into Peripheral Vein, Percutaneous Approach (ICD-10-PCS; principal; 2022-02-15)
DX: I46.9 Cardiac arrest, cause unspecified (principal); R58 Hemorrhage, not elsewhere classified
CPT/HCPCS: 36415; 36430; 71045-TC-FY; 80053; 82962; 83605; 84484; 85025; 85384; 85610; 85730; 86850; 86900; 86901; 86922; 99285-25; J7168; P9058